=== PATIENT | male | born 1940 | race Caucasian/White ===

== ENCOUNTER 2020-11-04 11:08 | Emergency (ER) | payer MEDICARE, BC, SELFPAY ==
[2020-11-04 11:11] VITALS: BP 150/74; PULSE 63; RESP 18; TEMP 37.3; O2SAT 98; BMI 25.0
--- NOTE | 2020-11-04 11:33 | MRI_ITS ---
STUDY: MRI CERVICAL SPINE WITHOUT CONTRAST REASON FOR EXAM: Male, 80 years old. Right hand function loss, pain in the right arm, hand swelling TECHNIQUE: Standardized fat and water weighted pulse sequences were obtained in the sagittal and axial planes. COMPARISON: None FINDINGS: Craniocervical junction and cervical spine are intact and aligned with normal marrow and paraspinal soft tissues. C2-C3 has uncinate and facet hypertrophy. Canal and foramina are patent. C3-C4 has uncinate and facet hypertrophy and broad disc and osteophyte asymmetrically worse on the right. There is mild canal stenosis without cord compression. There is moderate right foraminal stenosis and mild left. C4-C5 has uncinate and facet hypertrophy and right asymmetrically worse broad disc and plate osteophytes. There is minor right-sided cord compression and mild right foraminal stenosis. There is mild to moderate left foraminal stenosis. C5-C6 has uncinate and facet hypertrophy and broad disc and plate osteophytes. There is mild canal stenosis with minor cord compression. There is mild bilateral foraminal stenosis. C6-7 has uncinate and facet hypertrophy asymmetrically worse on the left. Canal is patent. There is moderate left foraminal stenosis with patent). C7-T1 has uncinate and facet hypertrophy and disc and osteophyte. Canal and foramina are patent. T1-T2 has patent canal and foramina. Spinal cord is normal in size and signal with minor flattening at the compressing levels. MRI/Spine Cervical (Routine) IMPRESSION: 1. Multilevel mild spondylotic cord compression. 2. Scattered multilevel bilateral mild/moderate foraminal stenoses. Electronically Signed: Jamin Dunn MD at 14:55 EDT Tel , Service support ,
--- NOTE | 2020-11-04 11:39 | EX.ED.UPPERE ---
HPI History of Present Illness Chief Complaint: Upper Extremity Injury Informant: patient Narrative Narrative: Patient is a 80-year-old male who presents to the emergency department for pain going down the right arm as well as difficulty moving his hand. His initial symptoms started this past Thursday. Has been progressively getting worse. He has not been using his hand due to the pain and lack of strength. He is never had this issue before. Denies any injury. He did have some neck pain prior to this starting but this has since resolved. He denies any fevers or chills. Patient does have a spine and pain management doctor for low back pain. He has gotten injections in the low back previously. He has never had issues with his upper extremities. He denies any headache or vision change. No issues with word finding. No chest pain or shortness of breath. No heart palpitations. PFSH PFSH Medical History Alcohol abuse Cancer COPD (chronic obstructive pulmonary disease) Hypertension Smoker Allergy/AdvReac Type Severity Reaction Status Date / Time Sulfa (Sulfonamide Allergy Swelling Verified 11/04/20 11:10 Antibiotics) Surgical History (Updated 11/04/20 @ 11:59 by Josephine Farmer) History of cholecystectomy Social History Smoking Status: Current every day smoker tobacco type: cigarettes ROS ROS ED Constitutional Constitutional ED: Denies chills or fever(s) Eyes Eyes: Denies change in vision ENT ENT ED: Denies epistaxis Cardiovascular Cardiovascular: Denies chest pain or palpitations Respiratory/Chest Respiratory/Chest: Denies cough, dyspnea or dyspnea on exertion Gastrointestinal Gastrointestinal: Denies abdominal pain, diarrhea, nausea or vomiting Musculoskeletal Musculoskeletal: Reports back pain and other Details: Right arm and hand pain ; Denies neck pain Integumentary Denies rash Neurologic Neurologic: Denies dizziness, headache(s) or weakness EXAM Physical Exam Const Vital Signs: 11/04/20 11:11 Temperature 99.1 F Temperature Source Temporal Pulse Rate 63 Respiratory Rate 18 Blood Pressure 150/74 H Blood Pressure Mean 99 Pulse Ox 98 Oxygen Delivery Method Room Air Positive well nourished and well developed General Appearance ED: well developed and NAD HEENT Reports normocephalic, head/scalp atraumatic and moist mucous membranes Eyes PERRL and EOMs intact bilaterally Neck no lymphadenopathy and supple General: Negative for tenderness Chest Wall inspection of chest normal Resp normal respiratory effort and clear to auscultation bilaterally Auscultation: Negative for rales, rhonchi or wheezes Cardio regular rate, regular rhythm and no murmurs GI normal to inspection, nondistended, normoactive bowel sounds and non-tender Back/Spine no CVA tenderness Back/Spine Narrative: No pain to palpation of midline spine. No step-off sign. Extremity Extremity Narrative: Right hand does have edema present. 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 He has decreased sensation throughout all fingers. 2+ radial pulse. Brisk capillary refill. Neuro oriented x3 Neuro Narrative: No clonus of lower extremities. Negative Babinski sign. Sensorium / Orientation: alert Psych mental status grossly normal Skin no rashes or lesions noted MDM MDM MDM Narrative Medical decision making narrative: Patient presents to the ED for right hand swelling, pain and decreased use due to muscle strength loss. On arrival to the ED vital signs within normal limits. He is in no acute distress. The right hand does have dependent edema. 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 This did start with pain. A low concern for stroke causing the symptoms. Will obtain MRI of the cervical spine given concern for significant stenosis causing this acute loss of function. MRIs was obtained which showed mild cord compression of the cervical spine at multiple levels. There is also spinal stenosis. I did attempt to contact his spine surgeon in [facility] but never received a call back. I did speak with Dr. Loomis and he recommended placing the patient on the Medrol Dosepak. He does not feel that this is an acute surgical spinal emergency. He is given [place] prior to discharge. He needs to call his surgeon first thing tomorrow morning. Return precautions are reviewed. He understands and is agreeable this plan. I have very low concern for central cause including stroke of his hand weakness and pain. I do not feel that this is a blood clot given the muscle weakness. The patient and patient's son who is at bedside are agreeable with this plan. Discharged home in stable condition. All questions were answered. Discharge Plan Triage Chief Complaint: Upper Extremity Injury ED Provider: Phuc Bradford Dx/Rx/DC Orders Clinical Impression: Cervical spinal cord compression, Weakness of right hand Instructions: ED Neuropathy, Peripheral Referrals: LAXMI AGUILAR [Other] Activity Restrictions/Additional Instructions: Please call your spine surgery first thing in the morning tomorrow for appointment. Disposition Disposition: Home, self care
[2020-11-04 15:04] VITALS: BP 166/64; PULSE 64; RESP 16; O2SAT 97
[2020-11-04] MEDS: MethylPREDNISolone DosePak 4 MG BOX 16 MG PO (16:34)
[2020-11-04] MEDS: HYDROcodone Bitartrate/Apap 5/325 Tablet PO (16:34)
== END 2020-11-04 17:07 | disposition home or self-care (01) ==
PROVIDERS: Emergency Provider Emergency Medicine
DX: G95.20 Unspecified cord compression (principal); R53.1 Weakness; J44.9 Chronic obstructive pulmonary disease, unspecified; I10 Essential (primary) hypertension; F17.210 Nicotine dependence, cigarettes, uncomplicated
CPT/HCPCS: 72141; 99282

== ENCOUNTER → 2022-08-01 | Outpatient (REF) | payer MEDICARE, BC, SELFPAY ==
[2022-08-01 08:34] LABS: AST(SGOT) 33 U/L (15-37); Alanine Aminotransfer ALT/SGPT 31 U/L (16-61); Albumin, Serum 2.5 g/dL (3.2-5.0); Alkaline Phosphatase 275 U/L (45-117); Bilirubin, Direct 2.19 mg/dL (0.00-0.30); Globulin 3.3 g/dL (2.2-4.2); Protein, Total 5.8 g/dL (6.4-8.2)
== END ==
LOC: OLS.WHLTCC 05:00
PROVIDERS: Visit Provider Internal Medicine
DX: C22.1 Intrahepatic bile duct carcinoma (principal); M62.81 Muscle weakness (generalized); R26.2 Difficulty in walking, not elsewhere classified; R27.8 Other lack of coordination; Z48.815 Encounter for surgical aftercare following surgery on the digestive system
CPT/HCPCS: 36415; 80076

== ENCOUNTER 2022-10-03 14:13 | Inpatient (IN) | payer MEDICARE, BC, SELFPAY ==
[2022-10-03 14:15] VITALS: BP 136/80; PULSE 74; RESP 16; TEMP 36.2; O2SAT 97
--- NOTE | 2022-10-03 14:33 | EDS_ITS ---
HPI <MERVAT Mendoza - Last Filed: 10/03/22 15:55> History of Present Illness Chief Complaint: General Illness Narrative Narrative: 82-year-old male with PMH of pancreatic cancer sent in by his oncologist for admission. Patient was diagnosed with pancreatic cancer early in 2022 and had a Whipple procedure in [place]. He started chemotherapy with Dr. Patel about a month ago which is scheduled for every 2 weeks. He tolerated the first round well so they added a third chemotherapy agent with it on October 01 but it caused severe diarrhea and nausea. These are common side effects. He has had outpatient hydration through his port over the last few days with no improvement. He still feels very weak and family has noted he seems confused. He is not taking his medication properly. He is very nauseous but has no vomiting. Denies chest pain or shortness of breath. States he is urinating normally. He is taking Imodium but it does not slow down the diarrhea. He fell last night at his independent living facility?states he was weak when getting off the toilet and fell on his butt and injured his right hip. He was able to stand and ambulate. Denies head injury. PFSH <MERVAT Mendoza - Last Filed: 10/03/22 15:55> PFSH Medical History Alcohol abuse Cancer COPD (chronic obstructive pulmonary disease) Hypertension Pancreatic cancer Smoker Allergy/AdvReac Type Severity Reaction Status Date / Time Sulfa (Sulfonamide Allergy Swelling Verified 10/03/22 14:20 Antibiotics) Surgical History (Updated 11/04/20 @ 11:59 by Josephine Farmer) History of cholecystectomy Social History Smoking Status: Current every day smoker tobacco type: cigarettes ROS <MERVAT Mendoza - Last Filed: 10/03/22 15:55> ROS ED ROS Narrative Constitutional: Negative for fever, chills. CVS: Negative for palpitations, chest pain. Respiratory: Negative for shortness of breath, cough. GI: Positive for nausea and diarrhea. Negative for abdominal pain, vomiting, melena. : Negative for dysuria. Neuro: Negative for headache. EXAM <MERVAT Mendoza Last Filed: 10/03/22 15:55> Physical Exam Narrative Exam Narrative: CONST: Patient sitting in no acute distress. EYES: Normal inspection. ENT: Slightly dry mucous membranes, tongue appears to have a white film consistent with thrush. NECK: Normal inspection. RESP: No respiratory distress, CTAB. CVS: Regular rate and rhythm, no murmur, no gallop. ABD: Soft and nontender, no guarding or rebound, nondistended. SKIN: Color normal, no rash, warm, dry, intact. EXTREMITIES: Normal appearance, no shortening or rotation of lower extremities. No reproducible tenderness of the right hip. No other injuries noted, moving all extremities, 2+ radial and DP pulses NEURO: Oriented x4. PSYCH: Normal affect. Const Vital Signs: 10/03/22 14:15 Temperature 97.2 F L Temperature Source Temporal Pulse Rate 74 Respiratory Rate 16 Blood Pressure 136/80 H Blood Pressure Mean 98 Pulse Ox 97 Oxygen Delivery Method Room Air <Dr. Byron Harrison MD - Last Filed: 10/03/22 14:52> Physical Exam Const Vital Signs: 10/03/22 14:15 Temperature 97.2 F L Temperature Source Temporal Pulse Rate 74 Respiratory Rate 16 Blood Pressure 136/80 H Blood Pressure Mean 98 Pulse Ox 97 Oxygen Delivery Method Room Air MDM <MERVAT Mendoza - Last Filed: 10/03/22 15:55> MDM MDM Narrative Medical decision making narrative: History gathered from: Patient and daughter Patient is having nausea, diarrhea, weakness and confusion since receiving IV chemotherapy for pancreatic cancer about 3 days ago. Had a fall last night at assisted living facility. Here he is awake and alert. He is oriented x4 with no focal neurological deficits but daughter states he has been repeating questions frequently which is atypical. Afebrile with normal vital signs. He does have slightly dry mucous membranes with an otherwise unremarkable exam. Labs show stable anemia at 10.3, mild new leukopenia with WBC count of 2.5, platelets 102. Overall his BMP is unremarkable with no major signs of dehydration or IRASEMA. CT brain and hip and pelvis x-rays are negative. Patient was hydrated with 1 L IV fluids and Zofran byte outpatient hydration over the last 3 days he continues to have diarrhea and be weak and fell last night. I feel he needs admitted to the hospital overnight. Case was discussed with the hospitalist. Differential: Dehydration, acute kidney injury, electrolyte abnormality, infectious process Consults: Case discussed with hospitalist I have personally performed a face to face assessment of the patient and have reviewed the CHRISTOPHER Note. I performed a substantive portion of the visit including all aspects of the following. My rodriguez findings include: History is 82-year-old male history of pancreatic CA on chemotherapy. Has had diarrhea for approximately a week. Has been generally weak at home and actually fell yesterday injuring his right hip. He is able to stand and walk. Denies hitting his head. He is on no blood thinners. Daughter is with him and states that has been more confused recently. He has had no vomiting. No fever. He was sent in by his oncologist who believes he would benefit from admission. Myself and our physician patient services assistant evaluated the patient. Exam is [well-appearing 82-year-old male. Vital signs are stable afebrile. He does not look septic or toxic. H EENT exam atraumatic. Nontender. Mildly dry mucous membranes. Neck nontender no lymphadenopathy. Back nontender. Lungs are clear. Heart regular rhythm. Right-sided med port. Abdomen soft nontender. Moving all 4 extremities. Mild tenderness to the right lateral hip. No shortening or deformity. Normal range of motion. He does have edema in both ankles. That is chronic. Neurologically he is awake and alert. He answers questions follows commands. He moves all 4 extremities. He knows where he is at, month and year. Daughter is present in the room.] Medical Decision Making [82-year-old male pancreatic CA on chemo having diarrhea, confusion and fall. Exam benign mild tenderness to his right hip. Screening labs, CAT scan of his head for the confusion and a right hip x-ray will be obtained. This could be from dehydration even though clinically look does look that dehydrated. Could be an infectious etiology but no obvious source on exam. Could be from a head injury but he has no signs any trauma to his head or tenderness.] Other additions or changes: [None] Lab Data Labs: Laboratory Results - last 24 hr 10/03/22 10/03/22 14:45 14:45 WBC 2.5 L RBC 3.13 L Hgb 10.3 L Hct 29.7 L MCV 94.9 H MCH 32.9 H MCHC 34.7 RDW Std Deviation 44.0 H RDW Coeff of Burak 12.7 Plt Count 102 L MPV 10.3 Immature Gran % (Auto) 2.000 H Neut % (Auto) 49.4 Lymph % (Auto) 20.9 [place] % (Auto) 25.3 H Eos % (Auto) 0.4 Baso % (Auto) 2.0 H Absolute Neuts (auto) 1.2 L Absolute Lymphs (auto) 0.52 L Nucleated RBC % 0 Differential Comment SCANNED Diff Path Review May foll Sodium 135 L Potassium 3.3 L Chloride 105 Carbon Dioxide 20.0 L Anion Gap 10 BUN 20 H Creatinine 1.13 Estim Creat Clear Calc 42.26 Est GFR (MDRD) Af Amer 80 Est GFR (MDRD) Non-Af 66 BUN/Creatinine Ratio 17.7 Glucose 114 H Calcium 8.8 Total Bilirubin 0.60 AST 24 ALT 33 Alkaline Phosphatase 145 H Total Protein 6.8 Albumin 3.1 L Globulin 3.7 Albumin/Globulin Ratio 0.8 L Radiography Diagnostic Testing: Clinical Impression(s) from Imaging Studies Brain CT 10/03/22 14:35 IMPRESSION: Chronic involutional changes of the brain. Electronically Signed: Nick Garcia MD at 15:34 EDT , ED attending interpretation of right hip and pelvis shows no acute fracture or dislocation. <Dr. Byron Harrison MD - Last Filed: 10/03/22 14:52> [facility] MDM Narrative Medical decision making narrative: History gathered from: Patient and daughter Patient is having nausea, diarrhea, weakness and confusion since receiving IV chemotherapy for pancreatic cancer about 3 days ago. Had a fall last night at assisted living facility. Here he is awake and alert. He is oriented x4 with no focal neurological deficits but daughter states he has been repeating questions frequently which is atypical. Afebrile with normal vital signs. He does have slightly dry mucous membranes with an otherwise unremarkable exam. I have personally performed a face to face assessment of the patient and have reviewed the CHRISTOPHER Note. I performed a substantive portion of the visit including all aspects of the following. My rodriguez findings include: History is 82-year-old male history of pancreatic CA on chemotherapy. Has had diarrhea for approximately a week. Has been generally weak at home and actually fell yesterday injuring his right hip. He is able to stand and walk. Denies hitting his head. He is on no blood thinners. Daughter is with him and states that has been more confused recently. He has had no vomiting. No fever. He was sent in by his oncologist who believes he would benefit from admission. Myself and our physician patient services assistant evaluated the patient. Exam is [well-appearing 82-year-old male. Vital signs are stable afebrile. He does not look septic or toxic. H EENT exam atraumatic. Nontender. Mildly dry mucous membranes. Neck nontender no lymphadenopathy. Back nontender. Lungs are clear. Heart regular rhythm. Right-sided med port. Abdomen soft nontender. Moving all 4 extremities. Mild tenderness to the right lateral hip. No shortening or deformity. Normal range of motion. He does have edema in both ankles. That is chronic. Neurologically he is awake and alert. He answers questions follows commands. He moves all 4 extremities. He knows where he is at, month and year. Daughter is present in the room.] Medical Decision Making [82-year-old male pancreatic CA on chemo having diarrhea, confusion and fall. Exam benign mild tenderness to his right hip. Screening labs, CAT scan of his head for the confusion and a right hip x-ray will be obtained. This could be from dehydration even though clinically look does look that dehydrated. Could be an infectious etiology but no obvious source on exam. Could be from a head injury but he has no signs any trauma to his head or tenderness.] Other additions or changes: [None] History & Record Review Discussion w/independent historian: Patient and Family Additional record(s) reviewed:: Prior inpatient record, Prior outpatient record, Prior ED visit and Prior labs Lab Data Attestation: I reviewed the patient's lab results. Labs: Laboratory Results - last 24 hr 10/03/22 10/03/22 14:45 14:45 WBC 2.5 L RBC 3.13 L Hgb 10.3 L Hct 29.7 L MCV 94.9 H MCH 32.9 H MCHC 34.7 RDW Std Deviation 44.0 H RDW Coeff of [place]ak 12.7 Plt Count 102 L MPV 10.3 Immature Gran % (Auto) 2.000 H Neut % (Auto) 49.4 Lymph % (Auto) 20.9 [place] % (Auto) 25.3 H Eos % (Auto) 0.4 Baso % (Auto) 2.0 H Absolute Neuts (auto) 1.2 L Absolute Lymphs (auto) 0.52 L Nucleated RBC % 0 Differential Comment SCANNED Diff Path Review May foll Sodium 135 L Potassium 3.3 L Chloride 105 Carbon Dioxide 20.0 L Anion Gap 10 BUN 20 H Creatinine 1.13 Estim Creat Clear Calc 42.26 Est GFR (MDRD) Af Amer 80 Est GFR (MDRD) Non-Af 66 BUN/Creatinine Ratio 17.7 Glucose 114 H Calcium 8.8 Total Bilirubin 0.60 AST 24 ALT 33 Alkaline Phosphatase 145 H Total Protein 6.8 Albumin 3.1 L Globulin 3.7 Albumin/Globulin Ratio 0.8 L Radiography Diagnostic Testing: Clinical Impression(s) from Imaging Studies Brain CT 10/03/22 14:35 IMPRESSION: Chronic involutional changes of the brain. Electronically Signed: Nick Garcia MD at 15:34 EDT , Discharge Plan Triage Chief Complaint: General Illness ED Midlevel Provider: Suzie Mccain ED Provider: Byron Harrison Dx/Rx/DC Orders Primary Care Provider: Denny Dietrich Referrals: Denny Dietrich MD [Primary Care Provider] -
[2022-10-03 14:34] VITALS: BMI 19.8
--- NOTE | 2022-10-03 14:35 | CT_ITS ---
Confusion. STUDY: CT BRAIN WITHOUT CONTRAST REASON FOR EXAM: Male, 82 years old. Confusion RADIATION DOSAGE (If Supplied By Facility): CTDIvol = ( 44.99 ) mGy, DLP = ( 779.24 ) mGycm TECHNIQUE: Transaxial CT imaging of the brain was performed without administration of intravenous contrast material. Individualized dose optimization techniques were used for this CT. COMPARISON: No relevant priors. FINDINGS: Normal soft tissue structures. Normal calvarium. There is mild cerebral atrophy with widening of the extra-axial spaces and ventricular dilatation. There are areas of decreased attenuation within the white matter tracts of the supratentorial brain, consistent with microvascular disease changes. Normal basal ganglia and thalami. Normal brainstem. There is mild cerebellar atrophy. There is no intracranial hemorrhage. There are no findings of an acute ischemic infarction. Atherosclerotic plaque formation of the cavernous portions of the internal carotid arteries bilaterally. Normal visualized paranasal sinuses. CT/Brain/Head without Contrast IMPRESSION: Chronic involutional changes of the brain. Electronically Signed: Nick Garcia MD at 15:34 EDT ,
[2022-10-03 14:55] LABS: Absolute Lymphocyte Count 0.52 X10^3/uL (0.83-4.51); Absolute Neutrophil Count 1.2 X10^3/uL (2.0-7.7); Basophil# 0.05 X10^3/uL; Eosinophil# 0.01 X10^3/uL; Eosinophils% 0.4 % (0-5); Hematocrit 29.7 % (40-54); Hemoglobin 10.3 g/dL (13.0-16.5); Lymphocyte # 0.52 X10^3/ul (0.83-4.51); Lymphocyte % 20.9 % (19-41); Mean Corp Hgb Conc 34.7 g/dL (32-36); Mean Corpuscular Hgb 32.9 pg (27.0-32.0); Mean Corpuscular Volume 94.9 fL (80-94); Mean Platelet Vol. 10.3 fl (6.2-12.0); Monocyte# 0.63 X10^3/uL; Monocyte% 25.3 % (0-10); NRBC Flagged by Analyzer 0 % (0-5); Neutrophil # 1.23 X10^3/uL (2.7-7.7); Neutrophil % 49.4 % (47-70); POSITIVE DIFFERENTIAL YES; POSITIVE MORPHOLOGY YES; Platelet Count 102 K/mm3 (150-450); RBC Distribution Width CV 12.7 % (11.6-14.6); Red Blood Count 3.13 M/mm3 (4.6-6.2); White Blood Count 2.5 K/mm3 (4.4-11.0)
[2022-10-03 14:56] LABS: Differential Indicated SCAN CRITERIA MET
[2022-10-03] MEDS: Ondansetron 4 MG/2 ML Vial IV (15:01)
[2022-10-03] MEDS: 0.9% Normal Saline 1,000 ML 999 ML IV (15:04)
[2022-10-03 15:11] LABS: ALB/GLOB Ratio 0.8 RATIO (0.9-2.4); AST(SGOT) 24 U/L (15-37); Alanine Aminotransfer ALT/SGPT 33 U/L (16-61); Albumin, Serum 3.1 g/dL (3.2-5.0); Alkaline Phosphatase 145 U/L (45-117); Anion Gap 10 (5-15); BUN 20 mg/dL (7-18); BUN/Creat Ratio 17.7 RATIO (10-20); Calcium,Total 8.8 mg/dL (8.5-10.1); Chloride 105 mmol/L (98-107); Creatinine, Serum 1.13 mg/dL (0.70-1.30); EST Glomerular Filtration Rate 66 mL/min (>60); Est Glom Filt Rate - Afr Amer 80 mL/min (>60); Estimated Creatinine Clearance 42.26 ml/min; Globulin 3.7 g/dL (2.2-4.2); Glucose 114 mg/dL (74-106); Potassium 3.3 mmol/L (3.5-5.1); Protein, Total 6.8 g/dL (6.4-8.2); Sodium Level 135 mmol/L (136-145)
--- NOTE | 2022-10-03 15:20 | RAD_ITS ---
STUDY: X-RAY - PELVIS AND RIGHT HIP REASON FOR EXAM: Male, 82 years old. right hip pain TECHNIQUE: 3 views of the pelvis and hip. COMPARISON: None. FINDINGS: There is a non-specific bowel gas pattern. There are radiotherapy seeds in the prostate. There are atherosclerotic vascular calcifications. Normal bilateral iliac wings, sacroiliac joints and visualized sacrum. Normal bilateral superior and inferior pubic rami. Normal pubic symphysis. Normal bilateral ischial tuberosities. Normal visualized femoral head. Normal acetabulum. Normal hip joint. RAD/HIP, UNI W/ Pelvis 2-3 Views IMPRESSION: No definite acute or significant abnormality seen. Electronically Signed: Ulises Romero MD at 16:47 EDT ,
[2022-10-03 15:34] LABS: Differential Comment SCANNED
--- NOTE | 2022-10-03 16:36 | HP.PCM_ITS ---
HPI - General General Date of Admission: 10/03/22 Date of Service: 10/03/22 Chief Complaint: Protracted diarrhea HPI Narrative MASSIEL CONTRERAS, is a 82 M with a history of cholangiocarcinoma status post Whipple's surgery and who was recently started on chemotherapy. Has received 2 courses. Patient or family unable to provide specific cancer treatment regimen. Patient present to the hospital on account of protracted diarrhea. Has had diarrhea for the last 2 to 3 weeks. States this started after the second course of chemotherapy at which time a third medication was added. Associated with abdominal cramps occasionally. Did not report any fever or chills. Has some nausea and rarely some vomiting. Appetite is poor and oral intake has been markedly diminished as well. Has tried several antidiarrheals without improvements PFSH Medical History Alcohol abuse Cancer COPD (chronic obstructive pulmonary disease) Hypertension Pancreatic cancer Smoker Allergy/AdvReac Type Severity Reaction Status Date / Time Sulfa (Sulfonamide Allergy Swelling Verified 10/03/22 14:20 Antibiotics) Surgical History History of cholecystectomy Social History Smoking Status: Current every day smoker tobacco type: cigarettes ROS ROS Narrative Did not report any chest pain or shortness of breath. Has some lower extremity swelling. All other systems reviewed and essentially negative as above in the body of the history. Vital Signs Vital Signs Vital Signs: 10/03/22 14:15 Temperature 36.2 C L Temperature Source Temporal Pulse Rate 74 Respiratory Rate 16 Blood Pressure 136/80 H Blood Pressure Mean 98 Pulse Ox 97 Oxygen Delivery Method Room Air Weight Weight: 57.3 kg Body Mass Index (BMI) 19.8 Physical Exam Narrative General exam. Elderly man, acutely ill-appearing, chronically ill-appearing, weak appearing, Skin. Skin is dry and scaly HEENT. Oral mucosa is moist some whitish plaques on buccal mucosa on the left. Neck. Neck is supple Heart. First and second heart sounds are both quite distant Lungs. Diminished breath sounds in entry bilaterally with expiratory wheezing. Few transmitted sounds. Abdomen. Protuberant, well-healed laparotomy scar noted. Hyperactive bowel sounds, nontender. No masses organomegaly Extremities. 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 Conscious alert and oriented x3. Cranial nerves II to XII grossly intact. Results Medical Records Data Attestation: I reviewed the patient's medical records Lab / Micro Data Attestation: I reviewed the patient's lab results. Result Diagrams: 10/03/22 14:45 10/03/22 14:45 Labs: Laboratory Results - last 24 hr 10/03/22 14:45: WBC 2.5 L, RBC 3.13 L, Hgb 10.3 L, Hct 29.7 L, MCV 94.9 H, MCH 32.9 H, MCHC 34.7, RDW Std Deviation 44.0 H, RDW Coeff of Burak 12.7, Plt Count 102 L, MPV 10.3, Immature Gran % (Auto) 2.000 H, Neut % (Auto) 49.4, Lymph % (Auto) 20.9, Alfalfa % (Auto) 25.3 H, Eos % (Auto) 0.4, Baso % (Auto) 2.0 H, Absolute Neuts (auto) 1.2 L, Absolute Lymphs (auto) 0.52 L, Nucleated RBC % 0, Differential Comment SCANNED, Diff Path Review September foll 10/03/22 14:45: Sodium 135 L, Potassium 3.3 L, Chloride 105, Carbon Dioxide 20.0 L, Anion Gap 10, BUN 20 H, Creatinine 1.13, Estim Creat Clear Calc 42.26, Est GFR (MDRD) Af Amer 80, Est GFR (MDRD) Non-Af 66, BUN/Creatinine Ratio 17.7, Glucose 114 H, Calcium 8.8, Total Bilirubin 0.60, AST 24, ALT 33, Alkaline Phosphatase 145 H, Total Protein 6.8, Albumin 3.1 L, Globulin 3.7, Albumin/Globulin Ratio 0.8 L Micro: Microbiology 10/03/22 15:07 Nasal Secretion SARS-CoV-2 & FLU Antigen (Rapid) - Final Radiology Impression Brain CT 10/03/22 14:35 IMPRESSION: Chronic involutional changes of the brain. Electronically Signed: Nick Garcia MD at 15:34 EDT , Assessment & Plan Assessment/Plan (1) Intractable diarrhea: PLAN: Plan Assessment and plan 1. Intractable diarrhea. Most likely side effect of recently started chemotherapy. We will schedule on antidiarrheals. Check for continued difficile infection. 2. Dehydration with prerenal azotemia. Secondary to #1 above. Will give IV fluids with D5 normal saline with 20 of potassium. 3. Hypokalemia. Mild. Secondary to #1 above as well as well as diminished intake. We will replete as planned #2 above. 4. Status post Whipple's procedure for cholangiocarcinoma. Charges/Coding Visit Charges Inpatient E&M: 52959 Init Hosp L3
[2022-10-03 16:49] VITALS: BP 151/53; PULSE 66; RESP 18; TEMP 36.2; O2SAT 99
[2022-10-03 17:07] VITALS: BMI 19.3
[2022-10-03] MEDS: Ondansetron 4 MG/2 ML Vial 8 MG IV (17:38)
[2022-10-03] MEDS: NYSTATIN 500,000 UNIT/5 ML UDC 500000 UNIT PO ×2 (17:39→21:52)
[2022-10-03] MEDS: Diphenoxylate/Atrop 1 Tablet 2 TABLET PO ×2 (17:39→22:49)
[2022-10-03 17:54] LABS: Bacteria 0 SEEN /hpf (None Seen); Mucous, Urine 0 SEEN /hpf (<or=2+); Red Blood Cells-Urine 0 SEEN /hpf (0-5); Squamous Epithelial Cells - UA 0 SEEN /hpf (0-5)
[2022-10-03 17:57] LABS: Color, Urine Yellow (Yellow); Glucose, Dipstick Normal (Normal); Ketone-Dipstick 50 mg/dl (Negative); Leukocyte Esterase-Dipstick 25 /ul (Negative); Nitrite-Dipstick Negative (Negative); Occult Blood-Urine 10 /ul (Negative); Protein-Dipstick 100 mg/dl (Negative); Urine Bilirubin Dipstick Negative (Negative); Urine Clarity Clear (Clear); Urine Urobilinogen Normal (Normal)
[2022-10-03] MEDS: Potassium Chloride 40 MEQ in Dextrose 5%/0.9% NaCl 1,000 ML 150 MEQ IV (18:03)
[2022-10-03 18:11] LABS: Hyaline Cast 5-10 SEEN /lpf (0-5); White Blood Cells 0-5 SEEN /hpf (0-5)
[2022-10-03 21:52] VITALS: BP 145/54; PULSE 67; RESP 18; TEMP 36.9; O2SAT 100
[2022-10-03] MEDS: MELATONIN 3 MG TABLET PO (21:52)
[2022-10-03] MEDS: Gabapentin 300 MG Capsule PO (22:49)
[2022-10-04] VITALS (13 sets, daily range): BP systolic 125–170; BP diastolic 54–91; PULSE 61–150; RESP 16–18; TEMP 36.6–37.2; O2SAT 98–100
[2022-10-04] MEDS: Potassium Chloride 40 MEQ in Dextrose 5%/0.9% NaCl 1,000 ML 150 MEQ IV ×3 (00:56→15:58)
[2022-10-04] MEDS: 0.9% Saline Lock 10 ML Syringe IV ×2 (06:15→23:38)
[2022-10-04] MEDS: Ondansetron 4 MG/2 ML Vial 8 MG IV ×3 (06:15→22:23)
[2022-10-04 07:31] LABS: Hemoglobin 9.3 g/dL (13.0-16.5); Mean Corp Hgb Conc 34.4 g/dL (32-36); Mean Corpuscular Hgb 33.1 pg (27.0-32.0); Mean Corpuscular Volume 96.1 fL (80-94); Mean Platelet Vol. 11.2 fl (6.2-12.0); POSITIVE COUNT YES; POSITIVE DIFFERENTIAL YES; POSITIVE MORPHOLOGY YES; Platelet Count 91 K/mm3 (150-450); RBC Distribution Width SD 45.3 fl (35.1-43.9); Red Blood Count 2.81 M/mm3 (4.6-6.2); White Blood Count 3.2 K/mm3 (4.4-11.0)
[2022-10-04 07:32] LABS: Differential Indicated MANUAL DIFF; Lymphocyte 32 % (19-41); Metamyelocyte 4 % (0-1); Monocyte 19 % (0-10); Neutrophil-Band 23 % (0-5); Neutrophil-Segmented 22 % (47-70); Total Cells Counted 100 (MANUAL DIFF)
[2022-10-04 07:33] LABS: Absolute Neutrophil Count 1.4 X10^3/uL (2.0-7.7); Neutrophil # 1.39 X10^3/uL (2.7-7.7); Platelet Estimate SLT DEC (ADEQ); Red Cell Morphology NORM C+C NORMAL (NORM C&C)
[2022-10-04 07:34] LABS: Absolute Lymphocyte Count 0.99 X10^3/uL (0.83-4.51); Lymphocyte # 0.99 X10^3/ul (0.83-4.51)
[2022-10-04 07:38] LABS: ALB/GLOB Ratio 0.8 RATIO (0.9-2.4); AST(SGOT) 14 U/L (15-37); Alanine Aminotransfer ALT/SGPT 24 U/L (16-61); Albumin, Serum 2.6 g/dL (3.2-5.0); Alkaline Phosphatase 118 U/L (45-117); Anion Gap 5 (5-15); BUN 14 mg/dL (7-18); BUN/Creat Ratio 14.2 RATIO (10-20); Calcium,Total 8.4 mg/dL (8.5-10.1); Chloride 115 mmol/L (98-107); Creatinine, Serum 0.99 mg/dL (0.70-1.30); EST Glomerular Filtration Rate 78 mL/min (>60); Est Glom Filt Rate - Afr Amer 94 mL/min (>60); Estimated Creatinine Clearance 47.18 ml/min; Globulin 3.1 g/dL (2.2-4.2); Glucose 172 mg/dL (74-106); Magnesium 2.1 mg/dL (1.6-2.6); Phosphorus 1.3 mg/dL (2.5-4.9); Potassium 3.4 mmol/L (3.5-5.1); Protein, Total 5.7 g/dL (6.4-8.2); Sodium Level 139 mmol/L (136-145)
[2022-10-04] MEDS: Creon 24,000 unit DR Capsule 3 CAP PO ×3 (08:23→16:09)
[2022-10-04] MEDS: amLODIPine 10 MG Tablet PO (10:30)
[2022-10-04] MEDS: Ascorbic Acid 500 MG Tablet 250 MG PO (10:30)
[2022-10-04] MEDS: Diphenoxylate/Atrop 1 Tablet 2 TABLET PO ×4 (10:30→22:23)
[2022-10-04] MEDS: Cholecalciferol (VIT D3) 25 MCG TABLET (1,000 UNITS) 50 MCG PO (10:30)
--- NOTE | 2022-10-04 10:30 | CASEMGMT ---
RN CM Face to Face with patient for initial transition planning/care coordination assessment. RN CM introduced self and role at [facility]. Patient lying in bed, alert and oriented. Patient willing to participate in assessment and is able to answer all questions appropriately. Care providers, pharmacy, and demographics verified. Patient wishes to discharge home if he is able to ambulate, will monitor progress with therapy. Patient states he has no further needs or concerns at this time. CM to follow for discharge planning needs that may arise. PCP: Denny Dietrich Specialists: Jorge oncologist Preferred Pharmacy: [facility] Insurance: Tejal BECKER Prescription Benefit: yes Living Will/HPOA: yes, Phuong Rising daughter LNOK: daughter, son Living Arrangements: Patient lives alone in [facility] in independent living apartment on 2nd floor, elevator to apartment. Patient is independent at home. Transportation: self, daughter DME/HHC: Patient has shower chair, grab bars, walker, and medical alert. No previous HHC or SNF. Will monitor progress with therapy Disposition Plan: TBD, HHC vs SNF pending progress with therapy. Emilia ESPINOZAN, RN, CM
[2022-10-04] MEDS: NYSTATIN 500,000 UNIT/5 ML UDC 500000 UNIT PO ×3 (10:31→18:14)
[2022-10-04] MEDS: Loperamide 2 MG Capsule PO (10:31)
[2022-10-04] MEDS: Enoxaparin 40 MG/0.4 ML Syringe SC (10:31)
[2022-10-04] MEDS: Metoprolol(XL)Succ 100 MG Tablet PO (10:31)
[2022-10-04] MEDS: Pravastatin 40 MG Tablet PO (10:32)
[2022-10-04] MEDS: Pantoprazole Sodium 40 MG Tablet PO (10:33)
--- NOTE | 2022-10-04 13:26 | PN.HOSP_ITS ---
Reason for Visit Reason for Visit: Diagnoses Diarrhea, unspecified (10/03/22) Subjective Subjective Patient was seen and examined today, he states he feels weak and he may not be able to go home. Patient's potassium was slightly low this morning. Is getting IV potassium infused until this afternoon. Patient stated he had an episode of diarrhea this morning. Objective Data Objective Data Vital Signs: Vital Signs Temp Pulse Resp BP Pulse Ox O2 Del Method 98.3 F 69 18 149/67 H 98 Room Air 10/04/22 08:28 10/04/22 10:31 10/04/22 08:28 10/04/22 08:28 10/04/22 08:28 10/04/22 08:28 Oxygen Delivery Method Room Air Weight: 56.047 kg Body Mass Index (BMI) 19.3 Intake & Output: Intake and Output for Last 24 Hours 10/02/22 10/03/22 10/04/22 23:59 23:59 23:59 Intake Total 1000 / 1000 2039 Output Total 150 / 150 Balance 850 / 850 2039 Lab / Micro Data Result Diagrams: 10/04/22 06:15 10/04/22 06:15 Labs: Laboratory Results - last 24 hr 10/03/22 14:45: WBC 2.5 L, RBC 3.13 L, Hgb 10.3 L, Hct 29.7 L, MCV 94.9 H, MCH 32.9 H, MCHC 34.7, RDW Std Deviation 44.0 H, RDW Coeff of Burak 12.7, Plt Count 102 L, MPV 10.3, Immature Gran % (Auto) 2.000 H, Neut % (Auto) 49.4, Lymph % (Auto) 20.9, Levy % (Auto) 25.3 H, Eos % (Auto) 0.4, Baso % (Auto) 2.0 H, Absolute Neuts (auto) 1.2 L, Absolute Lymphs (auto) 0.52 L, Nucleated RBC % 0, Differential Comment SCANNED, Diff Path Review September10/03/22 14:45: Sodium 135 L, Potassium 3.3 L, Chloride 105, Carbon Dioxide 20.0 L, Anion Gap 10, BUN 20 H, Creatinine 1.13, Estim Creat Clear Calc 42.26, Est GFR (MDRD) Af Amer 80, Est GFR (MDRD) Non-Af 66, BUN/Creatinine Ratio 17.7, Glucose 114 H, Calcium 8.8, Total Bilirubin 0.60, AST 24, ALT 33, Alkaline Phosphatase 145 H, Total Protein 6.8, Albumin 3.1 L, Globulin 3.7, Albumin/Globulin Ratio 0.8 L 10/03/22 17:45: Urine Color Yellow, Urine Clarity Clear, Urine pH 5.0, Ur Specific [place] 1.020, Urine Protein 100 H, Urine Glucose (UA) Normal, Urine Ketones 50 H, Urine Occult Blood 10 H, Urine Nitrite Negative, Urine Bilirubin Negative, Urine Urobilinogen Normal, Ur Leukocyte Esterase 25 H, Urine RBC 0 SEEN, Urine WBC 0-5 SEEN, Ur Squamous Epith Cells 0 SEEN, Urine Bacteria 0 SEEN, Hyaline Casts 5-10 SEEN, Urine Mucus 0 SEEN 10/04/22 06:15: WBC Cancelled, Corrected WBC Cancelled, RBC Cancelled, Hgb Cancelled, Hct Cancelled, MCV Cancelled, MCH Cancelled, MCHC Cancelled, RDW Std Deviation Cancelled, RDW Coeff of Burak Cancelled, Plt Count Cancelled, MPV Cancelled, Immature Gran % (Auto) Cancelled, Neut % (Auto) Cancelled, Lymph % (Auto) Cancelled, Levy % (Auto) Cancelled, Eos % (Auto) Cancelled, Baso % (Auto) Cancelled, Absolute Neuts (auto) Cancelled, Absolute Lymphs (auto) Cancelled, Total Counted Cancelled, Neutrophils % (Manual) Cancelled, Band Neutrophils % Cancelled, Lymphocytes % (Manual) Cancelled, Monocytes % (Manual) Cancelled, Eosinophils % (Manual) Cancelled, Basophils % (Manual) Cancelled, Metamyelocytes % Cancelled, Myelocytes % Cancelled, Promyelocytes % Cancelled, Blast Cells % Cancelled, Plasma Cell % (Manual) Cancelled, Other Cells % Cancelled, Nucleated RBC % Cancelled, Nucleated RBCs/100 WBC Cancelled, Differential Comment Cancelled, Diff Path Review Cancelled, Hypersegmented Neuts Cancelled, Atypical Lymphocytes Cancelled, Reactive Lymphocytes Cancelled, Smudge Cells Cancelled, Toxic Granulation Cancelled, Toxic Vacuolation Cancelled, Dohle Bodies C ancelled, Inderjit Rods Cancelled, Platelet Estimate Cancelled, Plt Morphology Comment Cancelled, RBC Morphology Cancelled, Polychromasia Cancelled, Hypochromasia Cancelled, Poikilocytosis Cancelled, Basophilic Stippling Cancelled, Anisocytosis Cancelled, Microcytosis Cancelled, Macrocytosis Cancelled, Spherocytes Cancelled, Sickle Cells Cancelled, Target Cells Cancelled, Tear Drop Cells Cancelled, Ovalocytes Cancelled, Stomatocytes Cancelled, [place] Bodies Cancelled, Feliberto Cells Cancelled, Bite Cells Cancelled, Crenated Cell Cancelled, Acanthocytes (Spur) Cancelled, Rouleaux Cancelled, Schistocytes Cancelled 10/04/22 06:15: Sodium 139, Potassium 3.4 L, Chloride 115 H, Carbon Dioxide 19.0 L, Anion Gap 5, BUN 14, Creatinine 0.99, Estim Creat Clear Calc 47.18, Est GFR (MDRD) Af Amer 94, Est GFR (MDRD) Non-Af 78, BUN/Creatinine Ratio 14.2, Glucose 172 H, Calcium 8.4 L, Phosphorus 1.3 L, Magnesium 2.1, Total Bilirubin 0.40, AST 14 L, ALT 24, Alkaline Phosphatase 118 H, Total Protein 5.7 L, Albumin 2.6 L, Globulin 3.1, Albumin/Globulin Ratio 0.8 L 10/04/22 06:15: WBC 3.2 L, RBC 2.81 L, Hgb 9.3 L, Hct 27.0 L, MCV 96.1 H, MCH 33.1 H, MCHC 34.4, RDW Std Deviation 45.3 H, RDW Coeff of Burak 13.0, Plt Count 91 L, MPV 11.2, Neut % (Auto) Not Reportable, Absolute Neuts (auto) 1.4 L, Absolute Lymphs (auto) 0.99, Total Counted 100, Neutrophils % (Manual) 22 L, Band Neutrophils % 23 H, Lymphocytes % (Manual) 32, Monocytes % (Manual) 19 H, Metamyelocytes % 4 H, Diff Path Review September foll, Platelet Estimate SLT DEC, RBC Morphology NORM C+C Micro: Microbiology 10/03/22 20:43 Stool C. difficile DNA Amplification - Final 10/03/22 15:07 Nasal Secretion SARS-CoV-2 & FLU Antigen (Rapid) - Final Radiography Diagnostic Testing: Radiology Impression Brain CT 10/03/22 14:35 IMPRESSION: Chronic involutional changes of the brain. Electronically Signed: Nick Garcia MD at 15:34 EDT , Hip/Pelvis X-Ray 10/03/22 15:20 IMPRESSION: No definite acute or significant abnormality seen. Electronically Signed: Ulises Romero MD at 16:47 EDT , Physical Exam Const alert, oriented x3 and no apparent distress Constitutional Narrative: Patient appears older than stated age, he appears frail and weak General Appearance: cooperative, well kempt and well developed Orientation / Consciousness: awake, oriented to person, oriented to place and oriented to time HEENT normocephalic, head/scalp atraumatic and moist oral mucous membranes Eyes PERRL, EOMs intact bilaterally and conjunctivae normal Neck supple, no JVD, thyroid normal and no carotid bruits General: trachea midline Resp normal respiratory effort, no retractions, no use of accessory muscles and clear to auscultation bilaterally Auscultation: Negative for rales, rhonchi or wheezes Cardio regular rate, regular rhythm, S1 normal heart sound, S2 normal heart sound, no murmurs, no rub and no gallops GI normal to inspection, nondistended, normoactive bowel sounds, soft to palpation, non-tender and non-distended Extremity no clubbing, cyanosis or edema Skin no rashes or lesions noted General Skin Exam: no breakdown Neuro oriented x3, CN's II-XII intact bilaterally, no focal motor deficits and no sensory deficits noted Sensorium / Orientation: awake and alert Speech: speech normal Psych affect normal Assessment & Plan Assessment/Plan (1) Intractable diarrhea: PLAN: Plan 1. Generalized debility secondary to chronic diarrhea-patient will continue to receive IV fluid for now, PT and OT will work with the patient #2 chronic diarrhea-suspected to be secondary to chemotherapy-patient's C. difficile toxin was negative, continue IV fluids for now, encourage oral intake of fluids #3 pancreatic cancer-complicates care, medical course, recovery, and prognosis #4 hypokalemia-BMP will be checked tomorrow, patient's patient's IV fluids with potassium will be discontinued around 5:00 p.m. today #5 past history of prostate cancer-complicates care, medical course, recovery, and prognosis #6 mild dehydration-again patient's IV fluids will be administered until around 5:00 today, he will be encouraged to intake oral fluids after that Total clinical time spent by myself addressing patient's medical issues, reviewing all of his data, and collaborating with patient's care team: 35 minutes Charges/Coding Visit Charges Inpatient E&M: 71125 Subs Hosp L2
--- NOTE | 2022-10-04 15:22 | CASEMGMT ---
Social Work Pt is here from [facility]. As per therapy, pt may benefit from going somewhere for rehab at discharge. SW met w/pt, spoke w/him about discharge plan. Pt states, I definitely need some help. SW provided to pt a list of custodial facilities, in network w/pt's insurance, in pt's preferred geographic area, complete with quality and resource use data. Pt states he has been to [facility] before for rehab. Pt inquired about TCU. SW explained that there may not be any bed availability, SW will call and leave the referral. SW asked pt to review the list with family(he confirmed his children assist w/decisions), and SW will follow up Thursday w/pt on choices. Pt states understanding. SW did call TCU and left a message w/referral. Plan: SNF likely, facility TBD MIS[facility]
[2022-10-04] MEDS: Dicyclomine 10 MG Capsule 20 MG PO (16:09)
[2022-10-04] MEDS: Psyllium 1 PACKET PO (16:10)
[2022-10-04] MEDS: Loperamide 2 MG Capsule 4 MG PO (20:04)
[2022-10-04] MEDS: MELATONIN 10 MG TABLET 5 MG PO (22:11)
[2022-10-04] MEDS: Menthol/Lanolin/Calamine/Znox 113 GM Tube 1 APPLIC TOPICAL (22:17)
[2022-10-04] MEDS: Gabapentin 300 MG Capsule PO (22:23)
--- NOTE | 2022-10-04 22:53 | EKG12_ITS ---
Test Reason : TACHYCARDIA Blood Pressure : / mmHG Vent. Rate : 145 BPM Atrial Rate : 147 BPM P-R Int : 000 ms QRS Dur : 094 ms QT Int : 306 ms P-R-T Axes : 000 015 076 degrees QTc Int : 475 ms Atrial fibrillation Abnormal ECG No previous ECGs available Confirmed by HARRIS ASHFORD, STEWART ([id number]), supervising film or videotape editor JOHNNY COVARRUBIAS ([id number]) on 10/07/2022 10:02:39 AM Referred By: RADHA Confirmed By:STEWART IGLESIAS MD
[2022-10-04] MEDS: Enoxaparin 60 MG/0.6 ML Syringe SC (23:15)
[2022-10-04] MEDS: Metoprolol Tartrate 5 MG/5 ML Vial IV ×2 (23:16→23:36)
[2022-10-04 23:50] LABS: Magnesium 1.8 mg/dL (1.6-2.6)
[2022-10-05] VITALS (17 sets, daily range): BP systolic 124–183; BP diastolic 54–96; PULSE 69–148; RESP 17–21; TEMP 36–36.6; O2SAT 97–100
[2022-10-05] MEDS: Metoprolol Tartrate 5 MG/5 ML Vial IV
[2022-10-05] MEDS: proCHLORPERazine 10 MG/2 ML Vial 5 MG IV (00:18)
[2022-10-05] MEDS: 0.9% Saline Lock 10 ML Syringe IV ×6 (00:19→22:59)
--- NOTE | 2022-10-05 00:35 | PCM.PN.BLA ---
Progress Note Patient with A-fib with RVR. Received metoprolol IV push x3 with heart rate still above 120. Patient is on metoprolol associated 100 mg daily. Will give additional dose of metoprolol 50 mg/h. Started on therapeutic dose of Lovenox. Check a TSH and magnesium. Replace potassium. Transfer to PCU.
--- NOTE | 2022-10-05 01:02 | NURSING ---
Report given to PAWAN Martínez RN
--- NOTE | 2022-10-05 01:15 | NURSING ---
Pt transferred by a bed to [facility].
--- NOTE | 2022-10-05 01:27 | NURSING ---
Message left for shanel Swanson for update regarding transfer per patient request.
[2022-10-05] MEDS: dilTIAZem 25 MG/5 ML Vial 10 MG IV BOLUS (01:42)
--- NOTE | 2022-10-05 02:03 | NURSING ---
Contacted Rachell, daughter and updated her on condition of Patient and that he transferred to PCU. Directed her to call PCU for updates.
[2022-10-05 06:31] LABS: Anion Gap 10 (5-15); BUN 8 mg/dL (7-18); BUN/Creat Ratio 9.2 RATIO (10-20); Calcium,Total 8.5 mg/dL (8.5-10.1); Chloride 119 mmol/L (98-107); Creatinine, Serum 0.87 mg/dL (0.70-1.30); EST Glomerular Filtration Rate 89 mL/min (>60); Est Glom Filt Rate - Afr Amer 108 mL/min (>60); Estimated Creatinine Clearance 53.69 ml/min; Glucose 121 mg/dL (74-106); Sodium Level 144 mmol/L (136-145); Thyroid Stim Hormone (TSH) 5.03 uIU/mL (0.358-3.74)
[2022-10-05] MEDS: Ondansetron 4 MG/2 ML Vial 8 MG IV ×3 (06:39→22:08)
--- NOTE | 2022-10-05 09:25 | ECHOCS_ITS ---
Reason For Study: Afib, Aflutter Procedure This was a 2D Doppler, Color Flow transthoracic echocardiogram. Contrast injection was performed. Exam performed portable in patient room. Left Ventricle Normal LV size. Left ventricular systolic function is hyperdynamic. No regional wall motion abnormalities noted. Right Ventricle Normal RV size. Normal systolic function. Atria Normal left atrium. Normal right atrium. Lipomatous hypertrophy of the atrial septum. Mitral Valve Normal mitral valve. Tricuspid Valve Normal tricuspid valve. Mild tricuspid valve insufficiency. Pulmonary artery systolic pressure is 30 mmHg. Aortic Valve The aortic valve is not well visualized. Pulmonic Valve The pulmonic valve is not well visualized. Great Vessels Normal aortic root. The pulmonary artery is normal size. Normal inferior vena cava. Pericardium/Pleural No pericardial effusion. Medication Diluted definity 2ml given slow IV push to enhance endocardial definition. MMode/2D Measurements & Calculations LVIDd: 3.1 cm IVSd: 1.6 cm Ao root diam: 2.4 cm LVIDs: 1.7 cm LVPWd: 0.88 cm RVDd: 1.6 cm FS: 45.8 % LAV(MOD-bp): 27.8 ml LVAd ap4: 15.7 cm2 SV(MOD-sp4): 23.2 ml LAV(MOD-bp) Indexed: 16.9 ml/m2 LVLd ap4: 6.5 cm LAV(MOD-sp2): 27.9 ml EDV(MOD-sp4): 30.9 ml LAV(MOD-sp4): 24.2 ml EDV(sp4-el): 32.4 ml LVAs ap4: 6.7 cm2 LVLs ap4: 5.0 cm ESV(MOD-sp4): 7.7 ml ESV(sp4-el): 7.7 ml EF(MOD-sp4): 75.0 % EF(sp4-el): 76.2 % SV(sp4-el): 24.7 ml LA A4 area: 11.2 cm2 LA dimension(2D): 3.3 cm RA A4 area: 6.3 cm2 Doppler Measurements & Calculations MV E max john: 81.6 cm/sec Ao V2 max: 101.5 cm/sec LV V1 max: 133.9 cm/sec Ao max P.1 mmHg LV V1 max P.2 mmHg Ao V2 mean: 82.3 cm/sec Ao mean P.9 mmHg Ao V2 VTI: 14.8 cm PA V2 max: 100.6 cm/sec TR max john: 251.8 cm/sec TR max P.4 mmHg ECHO/Echo Complete W/ Contrast Interpretation Summary Normal LV size. Left ventricular systolic function is hyperdynamic. Lipomatous hypertrophy of the atrial septum. Pulmonary artery systolic pressure is 30 mmHg. Contrast injection was performed. Ordering Physician: Moises Moore Referring Physician: Denny Dietrich Performed By: Amelia Deal, VINICIO, RVT
[2022-10-05] MEDS: Digoxin 250 MCG/ML Ampul 500 MCG IV (10:16)
[2022-10-05] MEDS: NYSTATIN 500,000 UNIT/5 ML UDC 500000 UNIT PO ×4 (10:17→22:08)
[2022-10-05] MEDS: Octreotide 0.1 MG/ML ML SC (10:17)
[2022-10-05] MEDS: Enoxaparin 60 MG/0.6 ML Syringe SC (10:18)
[2022-10-05] MEDS: Pravastatin 40 MG Tablet PO (10:19)
[2022-10-05] MEDS: Pantoprazole Sodium 40 MG Tablet PO (10:20)
[2022-10-05] MEDS: Menthol/Lanolin/Calamine/Znox 113 GM Tube 1 APPLIC TOPICAL ×2 (10:22→22:12)
[2022-10-05] MEDS: Diphenoxylate/Atrop 1 Tablet 2 TABLET PO ×3 (10:39→18:00)
[2022-10-05] MEDS: dilTIAZem 30 MG Tablet PO (10:39)
[2022-10-05] MEDS: Metoprolol(XL)Succ 100 MG Tablet 150 MG PO (10:40)
--- NOTE | 2022-10-05 11:11 | NURSING ---
XL amount of incontinent stool, bath given, FMS repositioned and checked balloon, new linens, repositioned patient, tolerated well. Will cont to monitor FMS.
--- NOTE | 2022-10-05 12:06 | EKG12_ITS ---
Test Reason : RHYTHM CHANGE Blood Pressure : / mmHG Vent. Rate : 071 BPM Atrial Rate : 071 BPM P-R Int : 180 ms QRS Dur : 086 ms QT Int : 380 ms P-R-T Axes : 063 016 046 degrees QTc Int : 412 ms Normal sinus rhythm Normal ECG When compared with ECG of 04-OCT-2022 22:33, MANUAL COMPARISON REQUIRED, DATA IS UNCONFIRMED Confirmed by HARRIS ASHFORD, STEWART ([id number]), food expeditor JOHNNY COVARRUBIAS ([id number]) on 10/07/2022 10:00:40 AM Referred By: FRANCY Confirmed By:STEWART IGLESIAS MD
[2022-10-05] MEDS: Dicyclomine 10 MG Capsule 20 MG PO ×2 (12:24→16:01)
[2022-10-05] MEDS: Loperamide 2 MG Capsule 4 MG PO ×2 (12:25→18:03)
[2022-10-05] MEDS: Ensure Clear 120 ML Liquid PO ×2 (12:29→16:02)
--- NOTE | 2022-10-05 13:06 | PN.HOSP_ITS ---
Reason for Visit Reason for Visit: Diagnoses Diarrhea, unspecified (10/03/22) Subjective Subjective Seen and examined today, he was moved to PCU due to new onset A-fib, the time of my examination today, patient's pulse rate was approximately 120 and a regular. Patient was asymptomatic, I talked with multiple family members who were in the room at the time my examination. I also discussed his care with cardiology and his oncologist Dr. Patel. Patient is still having diarrhea and a rectal tube was inserted last night. Objective Data Objective Data Vital Signs: Vital Signs Temp Pulse Resp BP Pulse Ox O2 Del Method 96.8 F L 74 20 H 164/96 H 99 Room Air 10/05/22 10:00 10/05/22 11:00 10/05/22 10:00 10/05/22 11:00 10/05/22 10:00 10/05/22 10:00 Oxygen Delivery Method Room Air Weight: 56.05 kg Body Mass Index (BMI) 19.3 Intake & Output: Intake and Output for Last 24 Hours 10/03/22 10/04/22 10/05/22 23:59 23:59 23:59 Intake Total 1000 / 1000 4880 / 4880 633.3333 / 633.3333 Output Total 150 / 150 380 / 380 1200 / 1200 Balance 850 / 850 4500 / 4500 -566.6667 / -566.6667 Medical Nutrition Assessment Dietitian: Malnutrition Criteria Met Start: 10/04/22 10:51 Freq: Status: Active Protocol: Document 10/04/22 16:06 RMA (Rec: 10/04/22 16:06 RMA [id number]) Nutrition Malnutrition Evidence of Malnutrition Exists Yes Malnutrition (severe): Acute Illness/Injury Evidenced By Suboptimal Energy Intake ( Severe),Weight Loss (Severe) Clinical Problem Acute Disease or Injury Related Malnutrition Etiology Severe protein-calorie malnutrition in the context of acute illness related to painful swallow, altered GI function and inadequate oral intake Signs/Symptoms as evidenced by BMI 19.4, weight loss~5% in less than 1 month and oral intake meeting less then 50% estimated nutrition needs x past 1 week Status Active Problem Recommendation Dietitian Recommendations/Changes Recommend advance diet as tolerated to regular; consider STEEL RU[employer]ER swallow eval if painful swallow continues. Will add 120 ml ensure clear 4 times per day w/ medpass. Will add ensure compact TID w/ meals for tolerance. Lab / Micro Data Result Diagrams: 10/04/22 06:15 10/05/22 05:35 Labs: Laboratory Results - last 24 hr 10/04/22 23:10: Magnesium 1.8 10/05/22 05:35: Sodium 144, Potassium 3.0 L, Chloride 119 H, Carbon Dioxide 15.0 L, Anion Gap 10, BUN 8, Creatinine 0.87, Estim Creat Clear Calc 53.69, Est GFR (MDRD) Af Amer 108, Est GFR (MDRD) Non-Af 89, BUN/Creatinine Ratio 9.2 L, Glucose 121 H, Calcium 8.5, TSH 5.03 H Micro: Microbiology 10/03/22 20:43 Stool C. difficile DNA Amplification - Final 10/03/22 15:07 Nasal Secretion SARS-CoV-2 & FLU Antigen (Rapid) - Final Physical Exam Narrative alert, oriented x3 and no apparent distress Constitutional Narrative: Patient appears older than stated age, he appears frail and weak General Appearance: cooperative, well kempt and well developed Orientation / Consciousness: awake, oriented to person, oriented to place and oriented to time HEENT normocephalic, head/scalp atraumatic and moist oral mucous membranes Eyes PERRL, EOMs intact bilaterally and conjunctivae normal Neck supple, no JVD, thyroid normal and no carotid bruits General: trachea midline Resp normal respiratory effort, no retractions, no use of accessory muscles and clear to auscultation bilaterally Auscultation: Negative for rales, rhonchi or wheezes Cardio regular rate, irregular rhythm, S1 normal heart sound, S2 normal heart sound, no murmurs, no rub and no gallops GI normal to inspection, nondistended, normoactive bowel sounds, soft to palpation, non-tender and non-distended Extremity no clubbing, cyanosis or edema Skin no rashes or lesions noted General Skin Exam: no breakdown Neuro oriented x3, CN's II-XII intact bilaterally, no focal motor deficits and no sensory deficits noted Sensorium / Orientation: awake and alert Speech: speech normal Psych affect normal Assessment & Plan Assessment/Plan (1) Intractable diarrhea: PLAN: Plan 1. Generalized debility secondary to chronic diarrhea-patient will continue to receive IV fluid for now, PT and OT will work with the patient #2 chronic diarrhea- secondary to chemotherapy-patient's C. difficile toxin was negative, I have ordered an enteric panel on his stool, I have also placed him on octreotide subcu per direction of oncology, patient will remain on Bentyl and Imodium. #3 pancreatic cancer-complicates care, medical course, recovery, and prognosis #4 hypokalemia-BMP will be checked tomorrow, patient's patient's IV fluids with potassium will be discontinued around 5:00 p.m. today #5 past history of prostate cancer-complicates care, medical course, recovery, a nd prognosis #6 mild dehydration-again patient's IV fluids will be administered until around 5:00 today, he will be encouraged to intake oral fluids after that #7 new onset atrial fib with rapid ventricular response-I have administered IV dig today 500 mcg and increased the patient's metoprolol, cardiology advised adding Cardizem 30 mg 3 times daily, at the time of this dictation, patient converted to normal sinus rhythm and I have changed the Cardizem to Cardizem CD 120 daily. Cardiology also recommended patient be placed on Eliquis 2.5 mg twice daily and Lovenox be discontinued. Echocardiogram was ordered for tomorrow. Total clinical time spent by myself addressing patient's medical issues, reviewing all of his data, and collaborating with patient's care team: 37 minutes
--- NOTE | 2022-10-05 13:13 | CON.PCM.CA_ITS ---
Assessment & Plan Assessment/Plan (1) Atrial fibrillation: PLAN: Agree with increasing the beta-rafael. Reasonable to keep the patient on Cardizem 120 mg p.o. daily. Reasonable to check a 2D echo. Discussed Eliquis with the patient. Patient and family are willing to try. Patient can be started on Eliquis 2.5 mg p.o. twice daily. We will sign off at this time. If we can be of any further assistance please let us know. HPI Consult Data Date of Consult: 10/05/22 HPI Narrative Reason for Consultation: Atrial fibrillation HPI Narrative: MASSIEL CONTRERAS, is a 82 M who presents with diarrhea. Patient has history of pancreatic cancer status post Whipple's procedure earlier this year. He went into A-fib with RVR this morning. His metoprolol was increased and he was given a dose of Cardizem and digoxin. He has since converted to sinus rhythm. He den ies any cardiac complaints. PFSH Medical History Alcohol abuse Cancer COPD (chronic obstructive pulmonary disease) Hypertension Pancreatic cancer Smoker Home Medications amlodipine 10 mg tablet 10 mg PO DAILY 10/03/22 [History Last Taken Unknown] ascorbic acid (vitamin C) 250 mg tablet (Vitamin C) 250 mg PO DAILY 10/03/22 [History Last Taken Unknown] bicalutamide 50 mg tablet 50 mg PO DAILY 10/03/22 [History Last Taken Unknown] budesonide-formoterol HFA 160 mcg-4.5 mcg/actuation aerosol inhaler (Symbicort) inh inhalation 10/03/22 [History Last Taken Unknown] cholecalciferol (vitamin D3) 50 mcg (2,000 unit) capsule (Vitamin D3) 50 mcg PO DAILY 10/03/22 [History Last Taken Unknown] fluticasone propionate 50 mcg/actuation nasal spray,suspension 50 spray intranasal PRN PRN Allergic Symptoms 10/03/22 [History Last Taken Unknown] gabapentin 300 mg capsule 300 mg PO QHS Check with primary doctor 10/03/22 [History Last Taken Unknown] lzzbbq-onticbiz-fqozsxk 36,000-114,000-180,000 unit capsule,delay rel (Creon) 36,000 cap PO DAILY 10/03/22 [History Last Taken Unknown] lisinopril 10 mg tablet 10 mg PO DAILY 10/03/22 [History Last Taken Unknown] loperamide 2 mg capsule 2 mg PO DAILY 10/03/22 [History Last Taken Unknown] melatonin 5 mg tablet 5 mg PO DAILY 10/03/22 [History Last Taken Unknown] metoprolol succinate 100 mg tablet,extended release 24 hr 100 mg PO DAILY 10/03/22 [History Last Taken Unknown] multivitamin tab PO DAILY 10/03/22 [History Last Taken Unknown] pantoprazole 40 mg tablet,delayed release 40 mg PO DAILY 10/03/22 [History Last Taken Unknown] pravastatin 40 mg tablet 40 mg PO DAILY 10/03/22 [History Last Taken Unknown] promethazine 25 mg tablet 25 mg PO Q6H PRN Nausea 10/03/22 [History Last Taken Unknown] Allergy/AdvReac Type Severity Reaction Status Date / Time Sulfa (Sulfonamide Allergy Swelling Verified 10/03/22 14:20 Antibiotics) Surgical History History of cholecystectomy Social History Smoking Status: Current every day smoker tobacco type: cigarettes Physical Exam Const alert HEENT normocephalic Eyes no scleral icterus Resp clear to auscultation bilaterally Cardio regular rhythm Skin no rashes or lesions noted Psych mental status grossly normal Risk Stratification Risk Stratification Applicable: No Charges/Coding Visit Charges Inpatient E&M: 73186 Init Hosp L2 Objective Data Vital Signs: Vital Signs Temp Pulse Resp BP Pulse Ox O2 Del Method 96.8 F L 74 20 H 164/96 H 99 Room Air 10/05/22 10:00 10/05/22 11:00 10/05/22 10:00 10/05/22 11:00 10/05/22 10:00 10/05/22 10:00 Oxygen Delivery Method Room Air Weight: 123 lb 9.105 oz Body Mass Index (BMI) 19.3 Intake & Output: Intake and Output for Last 24 Hours 10/03/22 10/04/22 10/05/22 23:59 23:59 23:59 Intake Total 1000 / 1000 4880 / 4880 633.3333 / 633.3333 Output Total 150 / 150 380 / 380 1200 / 1200 Balance 850 / 850 4500 / 4500 -566.6667 / -566.6667 Lab / Micro Data Result Diagrams: 10/04/22 06:15 10/05/22 05:35 Labs: Laboratory Results - last 24 hr 10/04/22 23:10: Magnesium 1.8 10/05/22 05:35: Sodium 144, Potassium 3.0 L, Chloride 119 H, Carbon Dioxide 15.0 L, Anion Gap 10, BUN 8, Creatinine 0.87, Estim Creat Clear Calc 53.69, Est GFR (MDRD) Af Amer 108, Est GFR (MDRD) Non-Af 89, BUN/Creatinine Ratio 9.2 L, Glucos e 121 H, Calcium 8.5, TSH 5.03 H Micro: Microbiology 10/03/22 20:43 Stool C. difficile DNA Amplification - Final Cardiology Labs/Tests 10/04/22 23:10: Magnesium 1.8 10/05/22 05:35: Sodium 144, Potassium 3.0 L, Chloride 119 H, Carbon Dioxide 15.0 L, Anion Gap 10, BUN 8, Creatinine 0.87, Est GFR (MDRD) Af Amer 108, Est GFR (MDRD) Non-Af 89, BUN/Creatinine Ratio 9.2 L, Glucose 121 H, Calcium 8.5 Rhythm: EKG: ECHO: Stress Test: Cardiac Cath: PCI: CT Surgery: Holter monitor: EPS: PPM: CXR: Chest CT Scan:
[2022-10-05] MEDS: dilTIAZem CD 120 MG Capsule PO (13:58)
[2022-10-05 15:05] LABS: Anion Gap 8 (5-15); BUN 8 mg/dL (7-18); BUN/Creat Ratio 7.8 RATIO (10-20); Calcium,Total 8.5 mg/dL (8.5-10.1); Chloride 121 mmol/L (98-107); Creatinine, Serum 1.03 mg/dL (0.70-1.30); EST Glomerular Filtration Rate 74 mL/min (>60); Est Glom Filt Rate - Afr Amer 89 mL/min (>60); Estimated Creatinine Clearance 45.35 ml/min; Glucose 140 mg/dL (74-106); Sodium Level 146 mmol/L (136-145)
[2022-10-05] MEDS: Creon 24,000 unit DR Capsule 3 CAP PO (16:01)
[2022-10-05] MEDS: MELATONIN 10 MG TABLET 5 MG PO (20:58)
[2022-10-05] MEDS: APIXABAN 2.5 MG TABLET (WCH) PO (21:00)
[2022-10-05] MEDS: Gabapentin 300 MG Capsule PO (21:07)
[2022-10-05] MEDS: hydrALAZINE 20 MG/ML Vial 5 MG IV (22:59)
[2022-10-06] VITALS (12 sets, daily range): BP systolic 142–194; BP diastolic 58–71; PULSE 69–79; RESP 18–20; TEMP 36.1–36.8; O2SAT 95–100
[2022-10-06] MEDS: Diphenoxylate/Atrop 1 Tablet 2 TABLET PO ×5 (00:19→22:38)
[2022-10-06] MEDS: Octreotide 0.1 MG/ML ML SC ×4 (00:20→22:40)
[2022-10-06] MEDS: Dicyclomine 10 MG Capsule 20 MG PO ×2 (00:21→06:12)
[2022-10-06] MEDS: Lisinopril 10 MG Tablet PO ×2 (02:32→14:05)
[2022-10-06] MEDS: hydrALAZINE 20 MG/ML Vial 5 MG IV ×2 (04:59→22:41)
[2022-10-06] MEDS: 0.9% Saline Lock 10 ML Syringe IV ×4 (05:04→22:44)
[2022-10-06] MEDS: Loperamide 2 MG Capsule 4 MG PO ×3 (06:19→22:38)
[2022-10-06] MEDS: Ondansetron 4 MG/2 ML Vial 8 MG IV ×3 (06:20→22:41)
[2022-10-06 06:47] LABS: Anion Gap 10 (5-15); BUN 13 mg/dL (7-18); BUN/Creat Ratio 9.5 RATIO (10-20); Calcium,Total 8.8 mg/dL (8.5-10.1); Chloride 126 mmol/L (98-107); Creatinine, Serum 1.37 mg/dL (0.70-1.30); EST Glomerular Filtration Rate 53 mL/min (>60); Est Glom Filt Rate - Afr Amer 64 mL/min (>60); Estimated Creatinine Clearance 34.09 ml/min; Glucose 158 mg/dL (74-106); Potassium 2.9 mmol/L (3.5-5.1); Sodium Level 148 mmol/L (136-145)
--- NOTE | 2022-10-06 08:07 | PN.HOSP_ITS ---
Reason for Visit Reason for Visit: Diagnoses Unspecified atrial fibrillation (10/03/22) Diarrhea, unspecified (10/03/22) Follow-up for chemotherapeutic adverse effect with intractable diarrhea and abdominal cramps Objective Data Objective Data Vital Signs: Vital Signs Temp Pulse Resp BP Pulse Ox O2 Del Method 98.2 F 76 18 170/67 H 100 Room Air 10/06/22 06:30 10/06/22 06:30 10/06/22 06:30 10/06/22 06:30 10/06/22 06:30 10/06/22 06:30 Oxygen Delivery Method Room Air Weight: 123 lb 9.105 oz Body Mass Index (BMI) 19.3 Intake & Output: Intake and Output for Last 24 Hours 10/04/22 10/05/22 10/06/22 23:59 23:59 23:59 Intake Total 4880 / 4880 993.3333 / 993.3333 860 / 860 Output Total 380 / 380 2600 / 2600 4875 / 4875 Balance 4500 / 4500 -1606.6667 / -1606.6667 -4015 / -4015 Medical Nutrition Assessment Dietitian: Malnutrition Criteria Met Start: 10/04/22 10:51 Freq: Status: Active Protocol: Document 10/04/22 16:06 RMA (Rec: 10/04/22 16:06 RMA [id number]) Nutrition Malnutrition Evidence of Malnutrition Exists Yes Malnutrition (severe): Acute Illness/Injury Evidenced By Suboptimal Energy Intake ( Severe),Weight Loss (Severe) Clinical Problem Acute Disease or Injury Related Malnutrition Etiology Severe protein-calorie malnutrition in the context of acute illness related to painful swallow, altered GI function and inadequate oral intake Signs/Symptoms as evidenced by BMI 19.4, weight loss~5% in less than 1 month and oral intake meeting less then 50% estimated nutrition needs x past 1 week Status Active Problem Recommendation Dietitian Recommendations/Changes Recommend advance diet as tolerated to regular; consider PSYCHIATRIC AIDE INSTRUCTOR swallow eval if painful swallow continues. Will add 120 ml ensure clear 4 times per day w/ medpass. Will add ensure compact TID w/ meals for tolerance. Lab / Micro Data Result Diagrams: 10/04/22 06:15 10/06/22 05:55 Labs: Laboratory Results - last 24 hr 10/05/22 13:55: Sodium 146 H, Potassium 4.0, Chloride 121 H, Carbon Dioxide 17.0 L, Anion Gap 8, BUN 8, Creatinine 1.03, Estim Creat Clear Calc 45.35, Est GFR (MDRD) Af Amer 89, Est GFR (MDRD) Non-Af 74, BUN/Creatinine Ratio 7.8 L, Glucose 140 H, Calcium 8.5 10/06/22 05:55: Sodium 148 H, Potassium 2.9 L, Chloride 126 H, Carbon Dioxide 12.0 L, Anion Gap 10, BUN 13, Creatinine 1.37 H, Estim Creat Clear Calc 34.09, Est GFR (MDRD) Af Amer 64, Est GFR (MDRD) Non-Af 53 L, BUN/Creatinine Ratio 9.5 L, Glucose 158 H, Calcium 8.8 Micro: Microbiology 10/05/22 12:40 Stool Enteric Bacteriology - Preliminary 10/03/22 20:43 Stool C. difficile DNA Amplification - Final 10/03/22 15:07 Nasal Secretion SARS-CoV-2 & FLU Antigen (Rapid) - Final Physical Exam Narrative Seen and examined. Patient is very weak, low pitched voice. Not able to sit up on its own. No acute cough but feels sinus drainage at back of throat. No fever. Still has diarrhea yesterday. Physical exam General: Alert, Oriented x3, Cooperative HEENT: Atraumatic, PERRLA, EOMI, Normocephalic Oral: Oral mucosa dry. Small reddish patch/mild sore, aphthous ulcer on left buccal mucosa Neck: Supple, No JVD, Negative Carotid Bruits Lungs: Air entry diminished in bilateral lung bases. No crepitation/rhonchi Cardiovascular: Regular rate, Regular Rhythm, Normal S1, Normal S2, No murmurs Abdomen: Bowel Sounds Present, Soft, Non Tender, Non-Distended : No renal angle tenderness. No suprapubic tenderness. Extremities: No edema, Capillary Refill Less than 3 Seconds Skin: No rashes, No breakdown Musculoskeletal: No Tenderness to Palpation of Joints or Extremities. ROM restricted, muscle strength 4+/5 at major joints. Neurological: Cranial nerves II-XII grossly intact, DTR 2+/4. No acute neurological deficit Psych/Mental Status: Flat affect. Assessment & Plan Assessment/Plan (1) Intractable diarrhea: PLAN: Plan 1. Generalized debility secondary to chronic diarrhea-on IV fluid PT and OT. Incentive spirometry. Rest as mentioned below #2 Small bowel ileus, bilateral inguinal hernia with concern for obstruction due to acute/subacute diarrhea- secondary to chemotherapeutic adverse effect/mucositis: The patient had diarrhea for 3 weeks. Empiric bacteriology panel Negative. The patient's C. difficile toxin was negative. Discussed with Dr. Patel in the morning. Patient on octreotide, scheduled Lomotil and Imodium. CT abdomen without contrast was done. CT images individually reviewed and agree with dilated stomach and fluid-filled loops of small bowel within the right inguinal hernia and colon in left renal hernia. I do not see obvious hernia swelling palpable/impulse on coughing. CT abdomen reported right inguinal hernia with a transition point. Discussed with the surgeon and CT images reviewed. We agreed there is no palpable hernial swelling Bramley due to dilated bowel loops or small hernial swelling/both. NG tube insertion ordered. I do not think patient needs any surgical intervention. #3 pancreatic cancer Whipple surgery on adjuvant chemotherapy. Patient had surgical resection and after that adjuvant chemotherapy with FOLFOX 1 cycle. After that patient was started on Irinotecan, which is DNA topoisomerase inhibitors. Complicates care, medical course, recovery, and prognosis. On pancrelipase supplement #4 Hypernatremia, hypokalemia, hyperchloremic normal anion gap metabolic acidosis and IRASEMA, prerenal etiology due to intractable diarrhea: Sodium high, potassium low. Baseline creatinine around 0.8-0.9 increased to 1.37. Group Social Worker started on bicarb drip with potassium supplement. Serum magnesium and phosphorus are in normal range. Nephrology consult requested and discussed. #5 past history of prostate cancer-complicates care, medical course, recovery, and prognosis #. Severe dehydration-patient on IV fluid #7 new onset atrial fib with rapid ventricular response-lunchroom monitor shows sinus rhythm heart rate in 70s. Patient had IV digoxin 500 mcg and then metoprolol succinate increased to 150 mg daily. Cardizem CD 120 mg daily. On Eliquis 2.5 mg twice daily. 2D echo ordered patient was evaluated by top collar maker and signed off. Total time of the visit including total time spent in counseling or coordination of care, (more than 50% of the total time, spent in obtaining medical information from nurses and other ancillary care providers,explaining to the patient about labs, imaging, diagnosis and management of active complex medical conditions), discussion with oncologist and community service coordinator, clinical update given to patient's son at bedside, review of labs and imaging is 45 minutes. Charges/Coding Visit Charges Inpatient E&M: 43396 Subs Hosp L3
--- NOTE | 2022-10-06 08:29 | CT_ITS ---
INDICATION: abdominal cramps/pain. Intractable diarrhea -- Post Chemo EXAMINATION: CT ABDOMEN AND PELVIS WITHOUT CONTRAST - CT Abdomen And Pelvis W/O Contrast Injection TECHNIQUE: Helically acquired images were obtained of the abdomen and pelvis without oral or IV contrast. A radiation dose optimization technique was used for this scan. IV Contrast dosage and agent: None. Oral contrast: None. RADIATION DOSAGE (If Supplied By Facility): CTDIvol = ( 6.31 ) mGy, DLP = ( 274.29 ) mGycm COMPARISON: FINDINGS: LOWER CHEST: Lung bases are clear. No cardiomegaly or pericardial effusion. The lack of intravenous contrast limits evaluation of solid visceral organs. LIVER: There is pneumobilia. There is a 5.5 mm low-attenuation focus within the dome of the liver (image 20 series 2). No focal mass. GALLBLADDER AND BILIARY TREE: There is nonvisualization of the gallbladder. PANCREAS: There is a dense within the pancreatic duct. There is pancreatic atrophy. SPLEEN: Normal size without focal cystic or solid mass. ADRENAL GLANDS: No nodules. KIDNEYS AND URETERS: Normal renal size and position. No hydronephrosis. PERITONEUM: No ascites or free air. No other fluid collection. BOWEL: No evidence of acute appendicitis. There are dilated fluid-filled loops of small bowel with a potential transition point within a right inguinal hernia. There are diverticula arising from the colon. There are fluid filled loops of colon. There is a left inguinal hernia containing a segment of colon. LYMPH NODES: No enlarged mesenteric or retroperitoneal lymph nodes. VESSELS: Aorta is non-dilated. There are peripheral calcifications of the abdominal aorta. URINARY BLADDER: Unremarkable. REPRODUCTIVE ORGANS: There are radiation seeds within the prostate gland. BONES: There are degenerative changes of the lumbar spine. There is a grade 1 anterior spondylolisthesis of L4 on L5. CT/Abdomen/Pelvis without Cont IMPRESSION: Dilated fluid-filled loops of small bowel concerning for a small bowel obstruction with a transition point within a right inguinal hernia. Fluid-filled loops of colon cannot exclude colitis. Atherosclerosis. Indeterminate 5.5 mm low-attenuation focus within the liver, cannot exclude a neoplastic process. Pancreatic atrophy likely related to known malignancy. Colonic diverticulosis. Left inguinal hernia containing a segment of colon without an associated obstruction. Electronically Signed: Maya Jason MD at 9:28 EDT ,
[2022-10-06 09:12] LABS: Magnesium 2.1 mg/dL (1.6-2.6); Phosphorus 3.7 mg/dL (2.5-4.9)
--- NOTE | 2022-10-06 09:41 | CON.PCM.RE_ITS ---
Assessment & Plan Assessment/Plan (1) Intractable diarrhea: (2) Hypokalemia: (3) IRASEMA (acute kidney injury): (4) Metabolic acidosis: (5) Atrial fibrillation: PLAN: Plan This is a very pleasant 82-year-old male with past medical history significant for pancreatic cancer admitted for evaluation of diarrhea. We were consulted for hypokalemia, IRASEMA, metabolic acidosis. Patient's potassium on admission 3.3. He has been having profuse diarrhea. He has rectal tube. Stool studies so far negative; C. difficile and enteric pathogen panel all normal. For his diarrhea patient has been receiving Bentyl, octreotide, Lomotil, Imodium. He has been getting potassium replacements. Today his potassium is at 2.9. Patient's bicarb level 20 on admission, today his bicarb is now worsened to 12.0. Bicarb and potassium normal at baseline. Mag level is normal at 2.1 and was normal on admission. Likely hypokalemia, metabolic acidosis secondary to significant GI losses. We will start patient on bicarb drip with potassium replacement. Phosphorus is 3.7. For IRASEMA, baseline creatinine normal ranging 0.8 to 1 mg/dL. Serum creatinine was 1.13 mg/dL on admission, yesterday his creatinine 0.87 and today serum creatinine slightly elevated at 1.37 mg/dL. Likely IRASEMA secondary to significant volume depletion and hemodynamics from A-fib. Patient is nonoliguric and is hypovolemic. There is no acute indication for DIRECTOR MERIT SYSTEM. Patient had CT of abdomen and pelvis this morning, no hydronephrosis, normal renal size and position. Patient is on low-dose lisinopril and we will continue this for now. His blood pressures are elevated. If serum creatinine worsens then likely will stop lisinopril. Encouraged patient to try and increase solute intake as best as he can, recommended food choices higher in potassium. Patient also noted to have sodium level of 148 today likely from lack of free water intake and poor oral intake. Encouraged patient to try to increase oral intake as best as he can. Further orders forthcoming as hospitalization evolves, thank you for allowing us participate in the care of Mr. Contreras. HPI Consult Data Date of Consult: 10/06/22 HPI Narrative HPI Narrative: MASSIEL CONTRERAS, is a 82 M with past medical history significant for pancreatic cancer status post Whipple's surgery, started on chemotherapy who presented to the emergency room on October 03 with complaints of protracted diarrhea after receiving 2 courses of chemotherapy. Patient was admitted for further evaluation and treatment. We were consulted for hypokalemia, IRASEMA, metabolic acidosis. Patient reports that he is feeling very thirsty. Reports he has had no appetite. Patient has rectal tube and has been having profuse diarrhea since admission. Patient and son (who is at bedside) report that they feel diarrhea has slowed up today. Patient denies any vomiting. During this hospitalization patient did go into A- fib. FORMERLY [facility], [facility]–1983 Medical History Alcohol abuse Cancer COPD (chronic obstructive pulmonary disease) Hypertension Pancreatic cancer Smoker Home Medications amlodipine 10 mg tablet 10 mg PO DAILY 10/03/22 [History Last Taken Unknown] ascorbic acid (vitamin C) 250 mg tablet (Vitamin C) 250 mg PO DAILY 10/03/22 [History Last Taken Unknown] bicalutamide 50 mg tablet 50 mg PO DAILY 10/03/22 [History Last Taken Unknown] budesonide-formoterol HFA 160 mcg-4.5 mcg/actuation aerosol inhaler (Symbicort) inh inhalation 10/03/22 [History Last Taken Unknown] cholecalciferol (vitamin D3) 50 mcg (2,000 unit) capsule (Vitamin D3) 50 mcg PO DAILY 10/03/22 [History Last Taken Unknown] fluticasone propionate 50 mcg/actuation nasal spray,suspension 50 spray intranasal PRN PRN Allergic Symptoms 10/03/22 [History Last Taken Unknown] gabapentin 300 mg capsule 300 mg PO QHS Check with primary doctor 10/03/22 [History Last Taken Unknown] uzgrit-bthnthap-ybyfboc 36,000-114,000-180,000 unit capsule,delay rel (Creon) 36,000 cap PO DAILY 10/03/22 [History Last Taken Unknown] lisinopril 10 mg tablet 10 mg PO DAILY 10/03/22 [History Last Taken Unknown] loperamide 2 mg capsule 2 mg PO DAILY 10/03/22 [History Last Taken Unknown] melatonin 5 mg tablet 5 mg PO DAILY 10/03/22 [History Last Taken Unknown] metoprolol succinate 100 mg tablet,extended release 24 hr 100 mg PO DAILY [History Last Taken Unknown] multivitamin tab PO DAILY 10/03/22 [History Last Taken Unknown] pantoprazole 40 mg tablet,delayed release 40 mg PO DAILY 10/03/22 [History Last Taken Unknown] pravastatin 40 mg tablet 40 mg PO DAILY 10/03/22 [History Last Taken Unknown] promethazine 25 mg tablet 25 mg PO Q6H PRN Nausea 10/03/22 [History Last Taken Unknown] Allergy/AdvReac Type Severity Reaction Status Date / Time Sulfa (Sulfonamide Allergy Swelling Verified 10/03/22 14:20 Antibiotics) Surgical History History of cholecystectomy Social History Smoking Status: Current every day smoker tobacco type: cigarettes ROS ROS Narrative As in HPI Physical Exam Narrative Alert oriented x3, no apparent distress mucous membranes very dry S1, S2, rhythm irregular rate controlled Lung sounds clear anteriorly and posteriorly. No wheezes rhonchi rales noted Abdomen soft, hypoactive bowel sounds No edema Rectal tube Medical Records Data Medical Nutrition Assessment Dietitian: Malnutrition Criteria Met Start: 10/04/22 10:51 Freq: Status: Active Protocol: Document 10/04/22 16:06 RMA (Rec: 10/04/22 16:06 RMA [id number]) Nutrition Malnutrition Evidence of Malnutrition Exists Yes Malnutrition (severe): Acute Illness/Injury Evidenced By Suboptimal Energy Intake ( Severe),Weight Loss (Severe) Clinical Problem Acute Disease or Injury Related Malnutrition Etiology Severe protein-calorie malnutrition in the context of acute illness related to painful swallow, altered GI function and inadequate oral intake Signs/Symptoms as evidenced by BMI 19.4, weight loss~5% in less than 1 month and oral intake meeting less then 50% estimated nutrition needs x past 1 week Status Active Problem Recommendation Dietitian Recommendations/Changes Recommend advance diet as tolerated to regular; consider MAGNAFLUX OPERATOR swallow eval if painful swallow continues. Will add 120 ml ensure clear 4 times per day w/ medpass. Will add ensure compact TID w/ meals for tolerance. Lab / Micro Data Result Diagrams: 10/04/22 06:15 10/06/22 05:55 Labs: Laboratory Results - last 24 hr 10/05/22 13:55: Sodium 146 H, Potassium 4.0, Chloride 121 H, Carbon Dioxide 17.0 L, Anion Gap 8, BUN 8, Creatinine 1.03, Estim Creat Clear Calc 45.35, Est GFR (MDRD) Af Amer 89, Est GFR (MDRD) Non-Af 74, BUN/Creatinine Ratio 7.8 L, Glucose 140 H, Calcium 8.5 10/06/22 05:55: Sodium 148 H, Potassium 2.9 L, Chloride 126 H, Carbon Dioxide 12.0 L, Anion Gap 10, BUN 13, Creatinine 1.37 H, Estim Creat Clear Calc 34.09, Est GFR (MDRD) Af Amer 64, Est GFR (MDRD) Non-Af 53 L, BUN/Creatinine Ratio 9.5 L, Glucose 158 H, Calcium 8.8 10/06/22 05:55: Phosphorus 3.7, Magnesium 2.1 Micro: Microbiology 10/05/22 12:40 Stool Enteric Bacteriology - Preliminary Radiology Impression Abdomen/Pelvis CT 10/06/22 08:29 IMPRESSION: Dilated fluid-filled loops of small bowel concerning for a small bowel obstruction with a transition point within a right inguinal hernia. Fluid-filled loops of colon cannot exclude colitis. Atherosclerosis. Indeterminate 5.5 mm low-attenuation focus within the liver, cannot exclude a neoplastic process. Pancreatic atrophy likely related to known malignancy. Colonic diverticulosis. Left inguinal hernia containing a segment of colon without an associated obstruction. Electronically Signed: Maya Jason MD at 9:28 EDT ,
--- NOTE | 2022-10-06 10:24 | EX.PCM.CON.S ---
Assessment & Plan Assessment/Plan (1) Bilateral inguinal hernia: (2) SBO (small bowel obstruction): PLAN: Plan Once echo is completed will examine patient. Per CT hernia appear reducible. Patient does have a dilated stomach as well as dilated small bowel would recommend NG placement initially and likely small bowel follow-through with Gastrografin in the future. Addendum: Unable to feel any obvious hernias on either side likely due to the fact that they are small and also there is liquid filled bowel in both of them, my read no CT does not appear to have passive obstruction at the right inguinal hernia as it appears to be dilated both before and after going into the hernia. I do agree that there is dilated stomach and small bowel recommend NG to help patient's symptoms of nausea. Lilo Mclaughlin M.D. Pager: [phone] [facility] [address] [place] [address], [facility], [address] [place] [id number] Office: [phone] HPI Consult Data Date of Consult: 10/06/22 HPI Narrative Reason for Consultation: Small bowel, inguinal hernias bilaterally HPI Narrative: MASSIEL CONTRERAS, is a 82 M who admitted to the floor due to IRASEMA, hypokalemia, intractable diarrhea. Patient was complaining of crampy lower right abdominal pain CT abdomen pelvis was done which did show dilated stomach and small bowel along with small inguinal hernias bilaterally. Right inguinal hernia was called for transition point left inguinal hernia containing a small amount of sigmoid colon. There is liquid stool throughout colon and small bowel. Currently patient is getting an echo. Patient states he is crampy right abdominal pain just started this morning along with the nausea. Patient's sons also in the room. Patient has not had much of an appetite since his last chemo treatment about 2 weeks ago where they added a third drug. Patient did undergo a Whipple at [facility] in late June. Patient began chemotherapy about a month after surgery. Patient denies noticing a bulge in either groin currently or history of. Patient admits to nausea currently and occasional crampy abdominal pain. PFSH Medical History Alcohol abuse Cancer COPD (chronic obstructive pulmonary disease) Hypertension Pancreatic cancer Smoker Home Medications amlodipine 10 mg tablet 10 mg PO DAILY 10/03/22 [History Last Taken Unknown] ascorbic acid (vitamin C) 250 mg tablet (Vitamin C) 250 mg PO DAILY 10/03/22 [History Last Taken Unknown] bicalutamide 50 mg tablet 50 mg PO DAILY 10/03/22 [History Last Taken Unknown] budesonide-formoterol HFA 160 mcg-4.5 mcg/actuation aerosol inhaler (Symbicort) inh inhalation 10/03/22 [History Last Taken Unknown] cholecalciferol (vitamin D3) 50 mcg (2,000 unit) capsule (Vitamin D3) 50 mcg PO DAILY 10/03/22 [History Last Taken Unknown] fluticasone propionate 50 mcg/actuation nasal spray,suspension 50 spray intranasal PRN PRN Allergic Symptoms 10/03/22 [History Last Taken Unknown] gabapentin 300 mg capsule 300 mg PO QHS Check with primary doctor 10/03/22 [History Last Taken Unknown] pvhfuc-tveipvbc-kwssfsl 36,000-114,000-180,000 unit capsule,delay rel (Creon) 36,000 cap PO DAILY 10/03/22 [History Last Taken Unknown] lisinopril 10 mg tablet 10 mg PO DAILY 10/03/22 [History Last Taken Unknown] loperamide 2 mg capsule 2 mg PO DAILY 10/03/22 [History Last Taken Unknown] melatonin 5 mg tablet 5 mg PO DAILY 10/03/22 [History Last Taken Unknown] metoprolol succinate 100 mg tablet,extended release 24 hr 100 mg PO DAILY 10/03/22 [History Last Taken Unknown] multivitamin tab PO DAILY 10/03/22 [History Last Taken Unknown] pantoprazole 40 mg tablet,delayed release 40 mg PO DAILY 10/03/22 [History Last Taken Unknown] pravastatin 40 mg tablet 40 mg PO DAILY 10/03/22 [History Last Taken Unknown] promethazine 25 mg tablet 25 mg PO Q6H PRN Nausea 10/03/22 [History Last Taken Unknown] Allergy/AdvReac Type Severity Reaction Status Date / Time Sulfa (Sulfonamide Allergy Swelling Verified 10/03/22 14:20 Antibiotics) Surgical History History of cholecystectomy Social History Smoking Status: Current every day smoker tobacco type: cigarettes Physical Exam Const alert General Appearance: frail HEENT normocephalic Resp normal respiratory effort Cardio Rate: regular rate GI soft to palpation and non-tender GI Narrative: Possibly reduce the right inguinal hernia-- no obvious hernia on exam currently in the right inguinal and left inguinal. Mild distention, well-healed midline incision Extremity normal to inspection Skin no rashes or lesions noted Neuro CN's II-XII intact bilaterally Psych affect normal Medical Records Data Medical Nutrition Assessment Dietitian: Malnutrition Criteria Met Start: 10/04/22 10:51 Freq: Status: Active Protocol: Document 10/04/22 16:06 RMA (Rec: 10/04/22 16:06 RMA [id number]) Nutrition Malnutrition Evidence of Malnutrition Exists Yes Malnutrition (severe): Acute Illness/Injury Evidenced By Suboptimal Energy Intake ( Severe),Weight Loss (Severe) Clinical Problem Acute Disease or Injury Related Malnutrition Etiology Severe protein-calorie malnutrition in the context of acute illness related to painful swallow, altered GI function and inadequate oral intake Signs/Symptoms as evidenced by BMI 19.4, weight loss~5% in less than 1 month and oral intake meeting less then 50% estimated nutrition needs x past 1 week Status Active Problem Recommendation Dietitian Recommendations/Changes Recommend advance diet as tolerated to regular; consider [employer] swallow eval if painful swallow continues. Will add 120 ml ensure clear 4 times per day w/ medpass. Will add ensure compact TID w/ meals for tolerance. Lab / Micro Data Result Diagrams: 10/04/22 06:15 10/06/22 05:55 Labs: Laboratory Results - last 24 hr 10/05/22 13:55: Sodium 146 H, Potassium 4.0, Chloride 121 H, Carbon Dioxide 17.0 L, Anion Gap 8, BUN 8, Creatinine 1.03, Estim Creat Clear Calc 45.35, Est GFR (MDRD) Af Amer 89, Est GFR (MDRD) Non-Af 74, BUN/Creatinine Ratio 7.8 L, Glucose 140 H, Calcium 8.5 10/06/22 05:55: Sodium 148 H, Potassium 2.9 L, Chloride 126 H, Carbon Dioxide 12.0 L, Anion Gap 10, BUN 13, Creatinine 1.37 H, Estim Creat Clear Calc 34.09, Est GFR (MDRD) Af Amer 64, Est GFR (MDRD) Non-Af 53 L, BUN/Creatinine Ratio 9.5 L, Glucose 158 H, Calcium 8.8 10/06/22 05:55: Phosphorus 3.7, Magnesium 2.1 Micro: Microbiology 10/05/22 12:40 Stool Enteric Bacteriology - Preliminary Radiology Impression Abdomen/Pelvis CT 10/06/22 08:29 IMPRESSION: Dilated fluid-filled loops of small bowel concerning for a small bowel obstruction with a transition point within a right inguinal hernia. Fluid-filled loops of colon cannot exclude colitis. Atherosclerosis. Indeterminate 5.5 mm low-attenuation focus within the liver, cannot exclude a neoplastic process. Pancreatic atrophy likely related to known malignancy. Colonic diverticulosis. Left inguinal hernia containing a segment of colon without an associated obstruction. Electronically Signed: Maya Jason MD at 9:28 EDT , Charges/Coding Visit Charges Inpatient E&M: 11836 Init Hosp L3
--- NOTE | 2022-10-06 10:39 | NURSING ---
cardiac monitoring per computerized system. Charge nurse monitoring at desk as well
--- NOTE | 2022-10-06 11:16 | CASEMGMT ---
KARRI spoke with Radha in TCU and they can take patient. Patient's son Sky called Dr Patel's office and canceled his chemo until he gets stronger. KARRI met with patient and his son Sky. KARRI introduced self and role at [facility]. SW let both know that TCU can take patient when he is ready for discharge. Plan: [facility] TCU when medically ready. Harini WYMAN
[2022-10-06] MEDS: Oxymetazoline 0.05% 1 SPRAY SPRAY.BTL 2 SPRAY NASAL (11:51)
--- NOTE | 2022-10-06 12:05 | RAD_ITS ---
INDICATION: NG INSERTION -- KUB with both diaphragms for NG/OG Verification EXAMINATION/TECHNIQUE: X-RAY - XR Abdomen 1 View COMPARISON: FINDINGS: BOWEL GAS PATTERN: There is an enteric tube in place with its tip within the expected region of the gastric fundus. Non-obstructive. No bowel or stomach distention. FREE AIR: Not assessed on a single supine view. ORGANOMEGALY: Not seen. CALCIFICATIONS: No abnormal calcifications observed. LOWER CHEST: No acute pathology. There is a central venous catheter with its tip within the expected region of the superior vena cava. BONES AND SOFT TISSUES: There is a pancreatic duct stent in place. RAD/Abdomen Single View (Portable) IMPRESSION: Enteric tube terminating within the expected region of the gastric fundus. Electronically Signed: Maya Jason MD at 13:23 EDT ,
--- NOTE | 2022-10-06 12:05 | NURSING ---
radiology aware of NGT down, and needing xray. pt tolerated no difficulty. spo2 100% on room air, hr 69.
[2022-10-06 12:30] LABS: Pathologist Review Reviewed
[2022-10-06 12:30] LABS: Pathologist Review Reviewed
[2022-10-06] MEDS: Potassium Chloride Oral Tablet 20 MEQ 40 MEQ PO ×2 (14:02)
[2022-10-06] MEDS: Cholecalciferol (VIT D3) 25 MCG TABLET (1,000 UNITS) 50 MCG PO ×2 (14:02→14:06)
[2022-10-06] MEDS: Pantoprazole Sodium 40 MG Tablet PO (14:03)
[2022-10-06] MEDS: APIXABAN 2.5 MG TABLET (WCH) PO ×2 (14:03→22:38)
[2022-10-06] MEDS: Metoprolol(XL)Succ 100 MG Tablet 150 MG PO (14:03)
[2022-10-06] MEDS: Menthol/Lanolin/Calamine/Znox 113 GM Tube 1 APPLIC TOPICAL ×2 (14:04→22:38)
[2022-10-06] MEDS: dilTIAZem CD 120 MG Capsule PO (14:04)
[2022-10-06] MEDS: Pravastatin 40 MG Tablet PO (14:04)
[2022-10-06] MEDS: Ascorbic Acid 500 MG Tablet 250 MG PO (14:05)
[2022-10-06] MEDS: Creon 24,000 unit DR Capsule 3 CAP PO (17:15)
[2022-10-06] MEDS: NYSTATIN 500,000 UNIT/5 ML UDC 500000 UNIT PO ×3 (17:16→22:40)
--- NOTE | 2022-10-06 17:32 | CON.PCM.ON_ITS ---
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 -Hyperchloremic acidosis secondary to diarrhea. -IRASEMA likely secondary to prerenal azotemia. -Abdominal pain and distention associated with nausea and vomiting. -Recent Whipple surgery. -Neutrophils starting to recover. Recommendations: -CT abdomen pelvis without IV contrast. -Consult nephrology for fluid and electrolyte management. -Continue octreotide 100 mcg SQ every 8 hours. -Lomotil 2 tablets every 6 hours [id number]. -Will follow. HPI Consult Data Date of Service:: 10/06/22 PCP / Referring Provider: Dr. Denny Dietrich MD Attending: Dr. Christ Shipman MD Chief Complaint Chief Complaint: Diarrhea History of Present Illness History of Present Illness: Patient seen and examined earlier today. Oncologic problem(s): 1) pT1c N1 (2 LNs positive) M0 stage IIB pancreas cancer. ? HPI: The patient is an 82-year-old male with past medical history significant for hypertension, mixed hyperlipidemia, former smoker, lumbar spinal stenosis, COPD, GERD, prostate cancer and pancreatic cancer. ? Patient's prostate cancer was diagnosed in 2009. ?He had brachytherapy with decrease in PSA. ?However in about 2019 he had a rising PSA and was started on androgen deprivation therapy with decrease in PSA. ?He had been treated in the [place] area at the [facility], [place]. ? Was on intermittent ADT. Recalled most recent PSA was 0.17 ng/mL. Most recent injection was or 04/2022. No hot flashes. ? Remains on bicalutamide. ? He could void to completion during the day. Typically 3-4 episodes nocturia. No gross hematuria or dysuria. More recently the patient presented with painless jaundice and was found to have a pancreatic head mass. ? EGD with EUS on June 27, 2022 showed an irregular hypoechoic and heterogeneous mass in the neck of the gallbladder that was felt to be a remnant with subhepatic extension pancreatic head was benign. ? Biliary stricture was found in the middle third of the main bile duct malignant appearing metal stent was placed. ? Biopsy from the bile duct and June 27, 2022 shows at least high-grade dysplasia with focus suspicious for invasive adenocarcinoma. ? Underwent pancreaticoduodenectomy July 21, 2022 . ?There was no evidence of metastatic disease. ?Overall postoperative course was relatively benign. ?He did have need for 1 unit of packed red blood cells. Pathology showed pancreatic ductal adenocarcinoma 1.7 cm in size moderately differentiated. ?Extended beyond the pancreas to involve anterior peripancreatic fat bile duct. ?Lymphovascular and perineural invasion were noted. ?Two of 33 lymph nodes involved with metastatic disease. Adenocarcinoma present less than 1 mm from the vascular groove surface. ?Bile duct margin excision was negative for adenocarcinoma and high-grade dysplasia. ?Same for the cystic duct remnant excision. The pathology was reviewed by the multidisciplinary hepatobiliary tumor board. ?This was felt more likely to be pancreatic than cholangiocarcinoma and adjuvant chemotherapy was recommended. ? Per initial consultation with me-- Good appetite. Taste had returned. No dysphagia, reflux or heartburn. No abdominal pain. Occasional constipation and diarrhea. Normal colored stools. ? Occasional numbness in left hand. ? No gross hematuria or dysuria. ? COPD--can climb steps but is limited by decreased strength in legs. ? LBP if walks a while--tired feeling in back. Diagnosed with lumbar spinal stenosis in the past. Was an element of right sciatica. Takes gabapentin and had full relief of the radicular pain. ? Had epidural injections in cervical spine as well without relief of right arm numbness. Gabapentin has helped that as well. He received the first cycle of adjuvant chemotherapy consisting of FOLFOX on 09/08. He tolerated therapy well. He was found to have normal genotype for [id number] and therefore irinotecan at reduced dose was added second cycle on 09/24/2022. He developed diarrhea last week. He was having numerous watery episodes per day. He was brought to the office 3 days in a row for hydration and electrolyte replacement. On Thursday, the diarrhea had not improved and he was sent to the emergency room here. His diarrhea had continued. I was contacted by the hospitalist yesterday. I advised starting octreotide 100 mcg subcu every 8 hours and scheduling Lomotil 2 tablets every 6 hours. Rectal tube was placed. He developed atrial fibrillation with RVR yesterday. Converted to normal sinus rhythm medically. Was evaluated by cardiology. As of this morning, he continues to have diarrhea. He has hypokalemia with significant decline in serum bicarbonate with increase chloride and hypernatremia. He is also complaining of abdominal pain and nausea. Advanced Directives Power of Respiratory Supervisor: Yes Living Will: Yes PFSH Medical History Alcohol abuse Cancer COPD (chronic obstructive pulmonary disease) Hypertension Pancreatic cancer Smoker Home Medications amlodipine 10 mg tablet 10 mg PO DAILY 10/03/22 [History Last Taken Unknown] ascorbic acid (vitamin C) 250 mg tablet (Vitamin C) 250 mg PO DAILY 10/03/22 [History Last Taken Unknown] bicalutamide 50 mg tablet 50 mg PO DAILY 10/03/22 [History Last Taken Unknown] budesonide-formoterol HFA 160 mcg-4.5 mcg/actuation aerosol inhaler (Symbicort) inh inhalation 10/03/22 [History Last Taken Unknown] cholecalciferol (vitamin D3) 50 mcg (2,000 unit) capsule (Vitamin D3) 50 mcg PO DAILY 10/03/22 [History Last Taken Unknown] fluticasone propionate 50 mcg/actuation nasal spray,suspension 50 spray intranasal PRN PRN Allergic Symptoms 10/03/22 [History Last Taken Unknown] gabapentin 300 mg capsule 300 mg PO QHS Check with primary doctor 10/03/22 [History Last Taken Unknown] biyaxc-tfwzszgr-hmixaak 36,000-114,000-180,000 unit capsule,delay rel (Creon) 36,000 cap PO DAILY 10/03/22 [History Last Taken Unknown] lisinopril 10 mg tablet 10 mg PO DAILY 10/03/22 [History Last Taken Unknown] loperamide 2 mg capsule 2 mg PO DAILY 10/03/22 [History Last Taken Unknown] melatonin 5 mg tablet 5 mg PO DAILY 10/03/22 [History Last Taken Unknown] metoprolol succinate 100 mg tablet,extended release 24 hr 100 mg PO DAILY 10/03/22 [History Last Taken Unknown] multivitamin tab PO DAILY 10/03/22 [History Last Taken Unknown] pantoprazole 40 mg tablet,delayed release 40 mg PO DAILY 10/03/22 [History Last Taken Unknown] pravastatin 40 mg tablet 40 mg PO DAILY 10/03/22 [History Last Taken Unknown] promethazine 25 mg tablet 25 mg PO Q6H PRN Nausea 10/03/22 [History Last Taken Unknown] Allergy/AdvReac Type Severity Reaction Status Date / Time Sulfa (Sulfonamide Allergy Swelling Verified 10/03/22 14:20 Antibiotics) Surgical History History of cholecystectomy Social History Smoking Status: Current every day smoker tobacco type: cigarettes Physical Exam Const alert Eyes no scleral icterus Resp normal respiratory effort Cardio regular rhythm GI GI Narrative: Abdomen distended and tympanic to percussion. Skin no jaundice Vital Signs Temperature 97.1 F L 10/06/22 17:13 Temperature Source Temporal 10/06/22 17:13 Pulse Rate 70 10/06/22 17:13 Pulse Strength Normal (2+) 10/05/22 22:00 Respiratory Rate 20 H 10/06/22 17:13 Respiratory Effort Non-Labored 10/06/22 04:50 Respiratory Depth Normal 10/06/22 04:50 Respiratory Pattern Normal 10/06/22 04:50 Blood Pressure 157/58 H 10/06/22 17:13 Blood Pressure Mean 91 10/06/22 17:13 Blood Pressure Source Monitor 10/06/22 17:13 Blood Pressure Position Supine 10/06/22 17:13 Blood Pressure Location Left Arm 10/06/22 17:13 Pulse Ox 95 10/06/22 17:13 Oxygen Delivery Method Room Air 10/06/22 17:13 Laboratory Results - last 24 hr 10/03/22 14:45: Diff Path Review Reviewed 10/04/22 06:15: Diff Path Review Reviewed 10/06/22 05:55: Sodium 148 H, Potassium 2.9 L, Chloride 126 H, Carbon Dioxide 12.0 L, Anion Gap 10, BUN 13, Creatinine 1.37 H, Estim Creat Clear Calc 34.09, Est GFR (MDRD) Af Amer 64, Est GFR (MDRD) Non-Af 53 L, BUN/Creatinine Ratio 9.5 L, Glucose 158 H, Calcium 8.8 10/06/22 05:55: Phosphorus 3.7, Magnesium 2.1 Microbiology 10/05/22 12:40 Stool Enteric Bacteriology - Final Diagnostic Data Brain CT 10/03/22 14:35 IMPRESSION: Chronic involutional changes of the brain. Electronically Signed: Nick Garcia MD at 15:34 EDT , Hip/Pelvis X-Ray 10/03/22 15:20 IMPRESSION: No definite acute or significant abnormality seen. Electronically Signed: Ulises Romero MD at 16:47 EDT , Echocardiogram 10/05/22 09:25 Interpretation Summary Normal LV size. Left ventricular systolic function is hyperdynamic. Lipomatous hypertrophy of the atrial septum. Pulmonary artery systolic pressure is 30 mmHg. Contrast injection was performed. Ordering Physician: Moises Moore Referring Physician: Denny Dietrich Performed By: Amelia Deal, RDCS, RVT Abdomen/Pelvis CT 10/06/22 08:29 IMPRESSION: Dilated fluid-filled loops of small bowel concerning for a small bowel obstruction with a transition point within a right inguinal hernia. Fluid-filled loops of colon cannot exclude colitis. Atherosclerosis. Indeterminate 5.5 mm low-attenuation focus within the liver, cannot exclude a neoplastic process. Pancreatic atrophy likely related to known malignancy. Colonic diverticulosis. Left inguinal hernia containing a segment of colon without an associated obstruction. Electronically Signed: Maya Jason MD at 9:28 EDT , KUB X-Ray 10/06/22 12:05 IMPRESSION: Enteric tube terminating within the expected region of the gastric fundus. Electronically Signed: Maya Jason MD at 13:23 EDT ,
[2022-10-06] MEDS: MELATONIN 10 MG TABLET 5 MG PO (22:37)
[2022-10-06] MEDS: Gabapentin 300 MG Capsule PO (22:38)
[2022-10-07] VITALS (11 sets, daily range): BP systolic 122–175; BP diastolic 43–78; PULSE 73–106; RESP 18–28; TEMP 36.4–36.8; O2SAT 10–100
[2022-10-07] MEDS: Dicyclomine 10 MG Capsule 20 MG PO ×2 (00:57→06:38)
[2022-10-07] MEDS: Loperamide 2 MG Capsule 4 MG PO ×2 (01:47→06:39)
[2022-10-07] MEDS: Octreotide 0.1 MG/ML ML SC ×2 (06:39→15:54)
[2022-10-07] MEDS: 0.9% Saline Lock 10 ML Syringe IV ×6 (06:40→18:59)
[2022-10-07] MEDS: Ondansetron 4 MG/2 ML Vial 8 MG IV ×3 (06:40→22:00)
[2022-10-07 07:19] LABS: Albumin, Serum 2.6 g/dL (3.2-5.0); BUN 24 mg/dL (7-18); BUN/Creat Ratio 8.4 RATIO (10-20); Calcium,Total 8.8 mg/dL (8.5-10.1); Chloride 122 mmol/L (98-107); Creatinine, Serum 2.85 mg/dL (0.70-1.30); EST Glomerular Filtration Rate 23 mL/min (>60); Est Glom Filt Rate - Afr Amer 28 mL/min (>60); Estimated Creatinine Clearance 16.39 ml/min; Glucose 159 mg/dL (74-106); Phosphorus 1.6 mg/dL (2.5-4.9); Sodium Level 144 mmol/L (136-145)
--- NOTE | 2022-10-07 07:44 | PN.ONC_ITS ---
Subjective Subjective Events of yesterday noted. CT noted. NG placed. Appreciate nephrology recommendations. Night nursing reports bladder scan this am 10 cc. Small amount urine in urinal last night and small amount in diaper this am. 1000 cc diarrhea output in last 24 hours. Scant amount since midnight. 1000 cc NG output in last 24 hours. Knows where he is this morning. Physical Exam Const alert HEENT HEENT Narrative: Dry mucous membranes. Eyes no scleral icterus Cardio regular rhythm GI GI Narrative: Abdomen less distended. Tender LUQ. Vital Signs Temperature 98 F 10/07/22 03:55 Temperature Source Oral 10/07/22 03:55 Pulse Rate 75 10/07/22 03:55 Pulse Strength Normal (2+) 10/06/22 22:00 Respiratory Rate 20 H 10/07/22 03:55 Respiratory Effort Non-Labored 10/07/22 04:00 Respiratory Depth Normal 10/07/22 04:00 Respiratory Pattern Normal 10/07/22 04:00 Blood Pressure 155/75 H 10/07/22 03:55 Blood Pressure Mean 101 10/07/22 03:55 Blood Pressure Source Monitor 10/07/22 03:55 Blood Pressure Position Semi-Fowlers 10/07/22 03:55 Blood Pressure Location Left Arm 10/07/22 03:55 Pulse Ox 100 10/07/22 04:00 Oxygen Delivery Method Room Air 10/07/22 04:00 Laboratory Results - last 24 hr 10/03/22 14:45: Diff Path Review Reviewed 10/04/22 06:15: Diff Path Review Reviewed 10/06/22 05:55: Phosphorus 3.7, Magnesium 2.1 10/07/22 06:30: Sodium 144, Potassium 3.0 L, Chloride 122 H, Carbon Dioxide 12.0 L, BUN 24 H, Creatinine 2.85 H, Estim Creat Clear Calc 16.39, Est GFR (MDRD) Af Amer 28 L, Est GFR (MDRD) Non-Af 23 L, BUN/Creatinine Ratio 8.4 L, Glucose 159 H , Calcium 8.8, Phosphorus 1.6 L, Albumin 2.6 L Microbiology 10/05/22 12:40 Stool Enteric Bacteriology - Final Diagnostic Data Brain CT 10/03/22 14:35 IMPRESSION: Chronic involutional changes of the brain. Electronically Signed: Nick Garcia MD at 15:34 EDT , Hip/Pelvis X-Ray 10/03/22 15:20 IMPRESSION: No definite acute or significant abnormality seen. Electronically Signed: Ulises Romero MD at 16:47 EDT , Echocardiogram 10/05/22 09:25 Interpretation Summary Normal LV size. Left ventricular systolic function is hyperdynamic. Lipomatous hypertrophy of the atrial septum. Pulmonary artery systolic pressure is 30 mmHg. Contrast injection was performed. Ordering Physician: Moises Moore Referring Physician: Denny Dietrich Performed By: Amelia Deal, VINICIO, RVT Abdomen/Pelvis CT 10/06/22 08:29 IMPRESSION: Dilated fluid-filled loops of small bowel concerning for a small bowel obstruction with a transition point within a right inguinal hernia. Fluid-filled loops of colon cannot exclude colitis. Atherosclerosis. Indeterminate 5.5 mm low-attenuation focus within the liver, cannot exclude a neoplastic process. Pancreatic atrophy likely related to known malignancy. Colonic diverticulosis. Left inguinal hernia containing a segment of colon without an associated obstruction. Electronically Signed: Maya Jason MD at 9:28 EDT , KUB X-Ray 10/06/22 12:05 IMPRESSION: Enteric tube terminating within the expected region of the gastric fundus. 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 -Hyperchloremic acidosis secondary to diarrhea. -IRASEMA likely secondary to prerenal azotemia. Cr increasing. -SBO. Appreciate Dr. Mclaughlin's expertise. -Recent Whipple surgery. -Fluid output in excess of input. Recommendations: -Bolus fluids and increase rate basal IVFs. Discussed with Dr. Shipman. -Allow sips and popsicles. -Check CBC with diff today. -Continue octreotide 100 mcg SQ every 8 hours. -Discussed code status. He has living will and will discuss DNR-CC arrest with Dr. Shipman. -Will follow.
[2022-10-07] MEDS: Lactated Ringers 1,000 ML 999 ML IV ×3 (08:40→12:20)
--- NOTE | 2022-10-07 08:56 | RAD_ITS ---
STUDY: X-RAY - ABDOMEN/PELVIS REASON FOR EXAM: Male, 82 years old. Pain. Evaluate for small bowel obstruction/ileus. TECHNIQUE: Single AP view of the abdomen / pelvis. COMPARISON: October 06, 2022. FINDINGS: Normal lung bases. Stable NG tube with tip projected over the left upper quadrant. Nonspecific bowel gas pattern with mild gaseous distention of bowel in the right upper quadrant to 6.8 cm. Gas seen to the rectosigmoid. There is no demonstrated free abdominal air. The visualized liver, spleen and kidneys are grossly normal in size and morphology. Normal soft tissue structures. Normal visualized osseous structures. RAD/Abdomen Single View (Portable) IMPRESSION: Mild dilatation of bowel in the right upper quadrant with no acute finding. Electronically Signed: Sumeet Lewis, at 9:43 EDT ,
[2022-10-07 08:58] LABS: Magnesium 1.9 mg/dL (1.6-2.6)
--- NOTE | 2022-10-07 08:58 | PCM.PN.SRG ---
Subjective Subjective Patient had a liter out prior nursing report of NG, also liter of diarrhea yesterday. Patient's creatinine is elevated this morning likely due to dehydration. Patient also was complaining of left-sided abdominal pain which he previously was not having. Objective Data Objective Data Vital Signs: Vital Signs Temp Pulse Resp BP Pulse Ox O2 Del Method 98 F 75 20 H 155/75 H 100 Room Air 10/07/22 03:55 10/07/22 03:55 10/07/22 03:55 10/07/22 03:55 10/07/22 04:00 10/07/22 04:00 Oxygen Delivery Method Room Air Weight: 123 lb 9.105 oz Body Mass Index (BMI) 19.3 Intake & Output: Intake and Output for Last 24 Hours 10/05/22 10/06/22 10/07/22 23:59 23:59 23:59 Intake Total 993.3333 / 993.3333 2074 / 2074 Output Total 2600 / 2600 5775 / 6875 2099 / 2100 Balance -1606.6667 / -1606.6667 -3700 / -4800 -2100 / -2100 Medical Nutrition Assessment Dietitian: Malnutrition Criteria Met Start: 10/04/22 10:51 Freq: Status: Active Protocol: Document 10/04/22 16:06 RMA (Rec: 10/04/22 16:06 RMA [id number]) Nutrition Malnutrition Evidence of Malnutrition Exists Yes Malnutrition (severe): Acute Illness/Injury Evidenced By Suboptimal Energy Intake ( Severe),Weight Loss (Severe) Clinical Problem Acute Disease or Injury Related Malnutrition Etiology Severe protein-calorie malnutrition in the context of acute illness related to painful swallow, altered GI function and inadequate oral intake Signs/Symptoms as evidenced by BMI 19.4, weight loss~5% in less than 1 month and oral intake meeting less then 50% estimated nutrition needs x past 1 week Status Active Problem Recommendation Dietitian Recommendations/Changes Recommend advance diet as tolerated to regular; consider OCCUPATIONAL MEDICINE SPECIALIST swallow eval if painful swallow continues. Will add 120 ml ensure clear 4 times per day w/ medpass. Will add ensure compact TID w/ meals for tolerance. Lab / Micro Data Result Diagrams: 10/04/22 06:15 10/07/22 06:30 Labs: Laboratory Results - last 24 hr 10/03/22 14:45: Diff Path Review Reviewed 10/04/22 06:15: Diff Path Review Reviewed 10/06/22 05:55: Phosphorus 3.7, Magnesium 2.1 10/07/22 06:30: Sodium 144, Potassium 3.0 L, Chloride 122 H, Carbon Dioxide 12.0 L, BUN 24 H, Creatinine 2.85 H, Estim Creat Clear Calc 16.39, Est GFR (MDRD) Af Amer 28 L, Est GFR (MDRD) Non-Af 23 L, BUN/Creatinine Ratio 8.4 L, Glucose 159 H, Calcium 8.8, Phosphorus 1.6 L, Albumin 2.6 L 10/07/22 06:30: Magnesium 1.9 Micro: Microbiology 10/05/22 12:40 Stool Enteric Bacteriology - Final 10/03/22 20:43 Stool C. difficile DNA Amplification - Final 10/03/22 15:07 Nasal Secretion SARS-CoV-2 & FLU Antigen (Rapid) - Final Radiography Diagnostic Testing: Radiology Impression Echocardiogram 10/05/22 09:25 Interpretation Summary Normal LV size. Left ventricular systolic function is hyperdynamic. Lipomatous hypertrophy of the atrial septum. Pulmonary artery systolic pressure is 30 mmHg. Contrast injection was performed. Ordering Physician: Moises Moore Referring Physician: Denny Dietrich Performed By: Amelia Deal, SRINIVASCS, RVT Abdomen/Pelvis CT 10/06/22 08:29 IMPRESSION: Dilated fluid-filled loops of small bowel concerning for a small bowel obstruction with a transition point within a right inguinal hernia. Fluid-filled loops of colon cannot exclude colitis. Atherosclerosis. Indeterminate 5.5 mm low-attenuation focus within the liver, cannot exclude a neoplastic process. Pancreatic atrophy likely related to known malignancy. Colonic diverticulosis. Left inguinal hernia containing a segment of colon without an associated obstruction. Electronically Signed: Maya Jason MD at 9:28 EDT , KUB X-Ray 10/06/22 12:05 IMPRESSION: Enteric tube terminating within the expected region of the gastric fundus. Electronically Signed: Maya Jason MD at 13:23 EDT , Physical Exam Narrative Has about 250 out in the canister from NG Const Constitutional Narrative: Appears more somnolent this morning Cardio regular rate GI soft to palpation GI Narrative: Patient is tender in the left abdomen and mid abdomen, no appreciable hernias on exam or they are able to be reduced. Assessment & Plan Assessment/Plan (1) Bilateral inguinal hernia: (2) SBO (small bowel obstruction): PLAN: Plan on Exam patient's inguinal hernia appear reducible. Patient is complaining of more abdominal pain in the left mid abdomen. We will get a KUB and possibly CT abdomen pelvis with p.o. contrast depending on KUB. Addendum: Patient's KUB shows a stool ball in the rectum as well as solid-appearing stool in the cecum with some gas distention of the ascending colon only occasional dilated small bowels. We will have the fecal management system removed as this likely obstructing the stool. Also plan for CT abdomen pelvis with p.o. contrast due to the increased abdominal pain and in the contrast will also be therapeutic. Discussed with Dr. Umberto Mclaughlin M.D. Pager: [phone] [facility] [address] [place] [address], [facility], [address] [place] [address] Office: [phone] Charges/Coding Visit Charges Inpatient E&M: 41513 Subs Hosp L3
[2022-10-07] MEDS: Pravastatin 40 MG Tablet PO (09:10)
[2022-10-07] MEDS: Cholecalciferol (VIT D3) 25 MCG TABLET (1,000 UNITS) 50 MCG PO (09:11)
[2022-10-07] MEDS: Ascorbic Acid 500 MG Tablet 250 MG PO (09:11)
[2022-10-07] MEDS: APIXABAN 2.5 MG TABLET (WCH) PO ×2 (09:12→22:02)
[2022-10-07] MEDS: BICALUTAMIDE 50 MG TABLET PO (09:12)
[2022-10-07] MEDS: NYSTATIN 500,000 UNIT/5 ML UDC 500000 UNIT PO ×2 (09:12→22:00)
[2022-10-07] MEDS: dilTIAZem CD 120 MG Capsule PO (09:42)
[2022-10-07] MEDS: Metoprolol(XL)Succ 100 MG Tablet 150 MG PO (09:45)
[2022-10-07] MEDS: Menthol/Lanolin/Calamine/Znox 113 GM Tube 1 APPLIC TOPICAL (09:50)
[2022-10-07] MEDS: Potassium Chloride IVPB 40 MEQ 100 MEQ IV BOLUS ×4 (10:10→15:35)
--- NOTE | 2022-10-07 10:17 | PN.RENAL_ITS ---
Subjective Subjective Following for IRASEMA NG placed. Surgery team following for bilateral hernias, small bowel obstruction. Patient's daughter and son at bedside. Objective Data Objective Data Vital Signs: Vital Signs Temp Pulse Resp BP Pulse Ox O2 Del Method 98 F 80 20 H 138/52 H 100 Room Air 10/07/22 03:55 10/07/22 09:45 10/07/22 03:55 10/07/22 09:45 10/07/22 04:00 10/07/22 04:00 Oxygen Delivery Method Room Air Weight: 56.05 kg Body Mass Index (BMI) 19.3 Intake & Output: Intake and Output for Last 24 Hours 10/05/22 10/06/22 10/07/22 23:59 23:59 23:59 Intake Total 993.3333 / 993.3333 2074 / 2074 Output Total 2600 / 2600 5775 / 6875 2099 / 2100 Balance -1606.6667 / -1606.6667 -3700 / -4800 -2100 / -2100 Medical Nutrition Assessment Dietitian: Malnutrition Criteria Met Start: 10/04/22 10:51 Freq: Status: Active Protocol: Document 10/04/22 16:06 RMA (Rec: 10/04/22 16:06 RMA [id number]) Nutrition Malnutrition Evidence of Malnutrition Exists Yes Malnutrition (severe): Acute Illness/Injury Evidenced By Suboptimal Energy Intake ( Severe),Weight Loss (Severe) Clinical Problem Acute Disease or Injury Related Malnutrition Etiology Severe protein-calorie malnutrition in the context of acute illness related to painful swallow, altered GI function and inadequate oral intake Signs/Symptoms as evidenced by BMI 19.4, weight loss~5% in less than 1 month and oral intake meeting less then 50% estimated nutrition needs x past 1 week Status Active Problem Recommendation Dietitian Recommendations/Changes Recommend advance diet as tolerated to regular; consider CIGARETTE MAKING MACHINE HOPPER FEEDER swallow eval if painful swallow continues. Will add 120 ml ensure clear 4 times per day w/ medpass. Will add ensure compact TID w/ meals for tolerance. Lab / Micro Data Result Diagrams: 10/04/22 06:15 10/07/22 06:30 Labs: Laboratory Results - last 24 hr 10/03/22 14:45: Diff Path Review Reviewed 10/04/22 06:15: Diff Path Review Reviewed 10/07/22 06:30: Sodium 144, Potassium 3.0 L, Chloride 122 H, Carbon Dioxide 12.0 L, BUN 24 H, Creatinine 2.85 H, Estim Creat Clear Calc 16.39, Est GFR (MDRD) Af Amer 28 L, Est GFR (MDRD) Non-Af 23 L, BUN/Creatinine Ratio 8.4 L, Glucose 159 H , Calcium 8.8, Phosphorus 1.6 L, Albumin 2.6 L 10/07/22 06:30: Magnesium 1.9 Micro: Microbiology 10/05/22 12:40 Stool Enteric Bacteriology - Final 10/03/22 20:43 Stool C. difficile DNA Amplification - Final 10/03/22 15:07 Nasal Secretion SARS-CoV-2 & FLU Antigen (Rapid) - Final Radiography Diagnostic Testing: Radiology Impression Echocardiogram 10/05/22 09:25 Interpretation Summary Normal LV size. Left ventricular systolic function is hyperdynamic. Lipomatous hypertrophy of the atrial septum. Pulmonary artery systolic pressure is 30 mmHg. Contrast injection was performed. Ordering Physician: Moises Moore Referring Physician: Denny Dietrich Performed By: Amelia Deal, SRINIVASCS, RVT X-Ray 10/06/22 12:05 IMPRESSION: Enteric tube terminating within the expected region of the gastric fundus. Electronically Signed: Maya Jsaon MD at 13:23 EDT , KUB X-Ray 10/07/22 08:56 IMPRESSION: Mild dilatation of bowel in the right upper quadrant with no acute finding. Electronically Signed: Sumeet Lewis, at 9:43 EDT , Physical Exam Narrative Alert and oriented, no apparent distress mucous membranes very dry S1, S2, rhythm irregular rate controlled Lung sounds clear anteriorly and posteriorly. No wheezes, rhonchi rales noted Abdomen soft to palpation No edema Assessment & Plan Assessment/Plan (1) Intractable diarrhea: (2) Hypokalemia: (3) IRASEMA (acute kidney injury): (4) Metabolic acidosis: (5) Atrial fibrillation: PLAN: Plan - 82-year-old male with past medical history significant for pancreatic cancer admitted for evaluation of diarrhea. Nephrology consulted for hypokalemia, IRASEMA, metabolic acidosis. -Initially nonoliguric, hypovolemic IRASEMA with normal baseline creatinine (creatinine ranging 0.8 to 1 mg/dL) serum creatinine 1.13 mg/dL on admission, creatinine 0.87 on 10/05, creatinine slightly elevated yesterday at 1.37 and today his creatinine is at 2.85 mg/dL. Likely IRASEMA secondary to significant volume depletion, A-fib leading to ATN. Patient had been nonoliguric. Urine output only around 100 mL today. However patient did have 1 liter out per NG and 1 L out from rectal tube this morning. Patient's output>>input. Place Cox per family request. CT abdomen pelvis without contrast few days ago did not show any hydronephrosis, normal renal size and position. At this time there is no acute indication for SUPERVISOR LIVESTOCK YARD. Continue off lisinopril. We will check uric acid, lactic acid. We will increase bicarb drip to 200 mL an hour for 4 hours today and repeat labs later today. -Diarrhea; stool studies so far negative; C. difficile and enteric pathogen pane l all normal. Patient has been receiving Bentyl, octreotide, Lomotil, Imodium. -Hypokalemia, metabolic acidosis likely secondary to significant GI losses. Patient has been getting potassium replacements and was started on bicarb drip yesterday. Today his potassium is at 3.0. Patient's bicarb level 20 on admission, today again bicarb is 12.0. Bicarb and potassium normal at baseline. Mag level 1.9 and was normal on admission. Phosphorus 1.6, K-Phos IV ordered and is being given now. -Abdominal pain, small bowel obstruction, bilateral hernias; surgery team following. NG placed. Rectal tube removed this morning as KUB showed stool ball in rectum as well as solid-appearing stool in cecum. Patient to have CT abdomen pelvis with oral contrast today. - history of HTN; bps acceptable on cardizem and toprol. -Had discussion today with patient's son and daughter who are at bedside regar ding IRASEMA, currently where renal function is at and possibility should renal function worsen that patient may need SUPERVISOR LIVESTOCK YARD. Questions were answered. Labs ordered for morning.
--- NOTE | 2022-10-07 13:05 | CT_ITS ---
STUDY: CT ABDOMEN AND PELVIS WITHOUT CONTRAST REASON FOR EXAM: Male, 82 years old. abd pain -- gastrografin now NG--delayed images RADIATION DOSAGE (If Supplied By Facility): CTDIvol = ( 6.94 ) mGy, DLP = ( 353.86 ) mGycm TECHNIQUE: Transaxial images were obtained from the dome of the diaphragm to the symphysis pubis with oral contrast, and without intravenous contrast. Sagittal and coronal images were reconstructed. Individualized dose optimization techniques were used for this CT. COMPARISON: Comparison is made with prior study dated October 06, 2022. FINDINGS: The visualized lung bases are unremarkable. Coronary artery calcification. Air is seen within the left intrahepatic biliary ducts in keeping with the cholecystectomy. A catheter is seen within the pancreatic duct entry into the second portion of the duodenum. The patient is status post Whipple procedure including cholecystectomy ectomy. Normal spleen. Normal pancreas. Normal bilateral adrenal glands. Normal right kidney. Normal left kidney. There is dilatation of the stomach from the oral contrast that was ingested. Fluid-filled small bowel loops although there is no evidence of a bowel obstruction at this time. Moderate amount of fecal material is seen throughout the colon. There is also evidence of fluid within the colon. The appendix is visualized and appears normal. There is diffuse atherosclerotic calcification of the abdominal aorta, without a demonstrated aneurysm. Normal inferior vena cava. Normal retroperitoneum. A Cox catheter is seen within the urinary bladder. 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 Once again, radiation seeds are seen within the prostate. The previously seen right inguinal hernia contains fluid. Small left inguinal hernia containing a portion of the nondilated sigmoid colon. There are diffuse degenerative changes of the visualized lumbar spine. Grade 1 anterior listhesis of L4 on L5. CT/Abdomen/Pel W ORAL Cont Only IMPRESSION: Emphysematous cystitis. Fecal material and fluid are seen throughout the colon. Fluid is seen within small bowel loops. Electronically Signed: Nick Garcia MD at 13:37 EDT ,
[2022-10-07 14:22] LABS: Absolute Lymphocyte Count 0.85 X10^3/uL (0.83-4.51); Absolute Neutrophil Count 11.8 X10^3/uL (2.0-7.7); Basophil# 0.01 X10^3/uL; Basophil% 0.1 % (0-1); Hemoglobin 11.7 g/dL (13.0-16.5); Lymphocyte # 0.85 X10^3/ul (0.83-4.51); Lymphocyte % 6.1 % (19-41); Mean Corp Hgb Conc 36.6 g/dL (32-36); Mean Corpuscular Hgb 33.4 pg (27.0-32.0); Mean Corpuscular Volume 91.4 fL (80-94); Mean Platelet Vol. 10.8 fl (6.2-12.0); Monocyte# 0.89 X10^3/uL; Monocyte% 6.4 % (0-10); NRBC Flagged by Analyzer 0.4 % (0-5); Neutrophil # 11.78 X10^3/uL (2.7-7.7); Neutrophil % 84.3 % (47-70); POSITIVE MORPHOLOGY YES; Platelet Count 158 K/mm3 (150-450); RBC Distribution Width CV 13.9 % (11.6-14.6)
[2022-10-07 14:47] LABS: Mucous, Urine 0 SEEN /hpf (<or=2+)
[2022-10-07 14:53] LABS: Differential Indicated SCAN CRITERIA MET
[2022-10-07 14:54] LABS: Differential Comment SCANNED
[2022-10-07 15:03] LABS: Potassium 3.7 mmol/L (3.5-5.1); Uric Acid 6.3 mg/dL (3.5-7.2)
[2022-10-07 15:08] LABS: Color, Urine Brown (Yellow); Glucose, Dipstick Normal (Normal); Ketone-Dipstick 5 mg/dl (Negative); Leukocyte Esterase-Dipstick 100 /ul (Negative); Nitrite-Dipstick Positive (Negative); Occult Blood-Urine 250 /ul (Negative); Protein-Dipstick 500 mg/dl (Negative); Specific Gravity, Urine 1.015 (1.002-1.030); Urine Clarity Turbid (Clear); Urine Urobilinogen Normal (Normal); Urine pH 6.5 (5.0 - 8.0)
[2022-10-07 15:09] LABS: Anion Gap 13 (5-15); BUN 25 mg/dL (7-18); BUN/Creat Ratio 9.2 RATIO (10-20); Calcium,Total 8.2 mg/dL (8.5-10.1); Chloride 117 mmol/L (98-107); Creatinine, Serum 2.71 mg/dL (0.70-1.30); EST Glomerular Filtration Rate 24 mL/min (>60); Est Glom Filt Rate - Afr Amer 29 mL/min (>60); Estimated Creatinine Clearance 17.24 ml/min; Glucose 101 mg/dL (74-106); Potassium 3.7 mmol/L (3.5-5.1); Sodium Level 144 mmol/L (136-145)
[2022-10-07 15:11] LABS: Urine Bilirubin Dipstick 1 mg/dL (Negative)
[2022-10-07 15:13] LABS: Lactic Acid 3.5 mmol/L (0.4-1.9)
[2022-10-07 15:20] LABS: Amorphous Sediment 1+ URATE; Bacteria 1+ /hpf (None Seen); Red Blood Cells-Urine > 100 SEEN /hpf (0-5); Squamous Epithelial Cells - UA 5-10 SEEN /hpf (0-5); White Blood Cells 10-25 SEEN /hpf (0-5)
--- NOTE | 2022-10-07 16:52 | NURSING ---
called oriana at rn field for dual picc line insertion
--- NOTE | 2022-10-07 17:17 | PCM.PN.HOSP ---
Reason for Visit Reason for Visit: Diagnoses Acidosis, unspecified (10/03/22) Hypokalemia (10/03/22) Unspecified atrial fibrillation (10/03/22) Bilateral inguinal hernia, without obstruction or gangrene, not specified as recurrent (10/03/22) Unspecified intestinal obstruction, unspecified as to partial versus complete obstruction (10/03/22) Acute kidney failure, unspecified (10/03/22) Unspecified abdominal pain (10/03/22) Vomiting, unspecified (10/03/22) Diarrhea, unspecified (10/03/22) Subjective Subjective Follow-up for chemotherapeutic adverse effect with generalized weakness, diarrhea, dehydration, ileus and electrolyte abnormality Objective Data Objective Data Vital Signs: Vital Signs Temp Pulse Resp BP Pulse Ox O2 Del Method 98 F 75 20 H 155/75 H 100 Room Air 10/07/22 03:55 10/07/22 03:55 10/07/22 03:55 10/07/22 03:55 10/07/22 04:00 10/07/22 04:00 Oxygen Delivery Method Room Air Weight: 123 lb 9.105 oz Body Mass Index (BMI) 19.3 Intake & Output: Intake and Output for Last 24 Hours 10/05/22 10/06/22 10/07/22 23:59 23:59 23:59 Intake Total 993.3333 / 993.3333 2074 / 2074 Output Total 2600 / 2600 5775 / 6875 2099 / 2099 Balance -1606.6667 / -1606.6667 -3700 / -4800 -2100 / -2100 Medical Nutrition Assessment Dietitian: Malnutrition Criteria Met Start: 10/04/22 10:51 Freq: Status: Active Protocol: Document 10/04/22 16:06 RMA (Rec: 10/04/22 16:06 RMA [id number]) Nutrition Malnutrition Evidence of Malnutrition Exists Yes Malnutrition (severe): Acute Illness/Injury Evidenced By Suboptimal Energy Intake ( Severe),Weight Loss (Severe) Clinical Problem Acute Disease or Injury Related Malnutrition Etiology Severe protein-calorie malnutrition in the context of acute illness related to painful swallow, altered GI function and inadequate oral intake Signs/Symptoms as evidenced by BMI 19.4, weight loss~5% in less than 1 month and oral intake meeting less then 50% estimated nutrition needs x past 1 week Status Active Problem Recommendation Dietitian Recommendations/Changes Recommend advance diet as tolerated to regular; consider CHICKEN HANDLER swallow eval if painful swallow continues. Will add 120 ml ensure clear 4 times per day w/ medpass. Will add ensure compact TID w/ meals for tolerance. Lab / Micro Data Result Diagrams: 10/07/22 14:10 10/07/22 14:10 Labs: Laboratory Results - last 24 hr 10/03/22 14:45: Diff Path Review Reviewed 10/04/22 06:15: Diff Path Review Reviewed 10/06/22 05:55: Phosphorus 3.7, Magnesium 2.1 10/07/22 06:30: Sodium 144, Potassium 3.0 L, Chloride 122 H, Carbon Dioxide 12.0 L, BUN 24 H, Creatinine 2.85 H, Estim Creat Clear Calc 16.39, Est GFR (MDRD) Af Amer 28 L, Est GFR (MDRD) Non-Af 23 L, BUN/Creatinine Ratio 8.4 L, Glucose 159 H, Calcium 8.8, Phosphorus 1.6 L, Albumin 2.6 L Micro: Microbiology 10/05/22 12:40 Stool Enteric Bacteriology - Final 10/03/22 20:43 Stool C. difficile DNA Amplification - Final 10/03/22 15:07 Nasal Secretion SARS-CoV-2 & FLU Antigen (Rapid) - Final Radiography Diagnostic Testing: Radiology Impression Echocardiogram 10/05/22 09:25 Interpretation Summary Normal LV size. Left ventricular systolic function is hyperdynamic. Lipomatous hypertrophy of the atrial septum. Pulmonary artery systolic pressure is 30 mmHg. Contrast injection was performed. Ordering Physician: Moises Moore Referring Physician: Denny Dietrich Performed By: Amelia Deal, VINICIO, RVT Abdomen/Pelvis CT 10/06/22 08:29 IMPRESSION: Dilated fluid-filled loops of small bowel concerning for a small bowel obstruction with a transition point within a right inguinal hernia. Fluid-filled loops of colon cannot exclude colitis. Atherosclerosis. Indeterminate 5.5 mm low-attenuation focus within the liver, cannot exclude a neoplastic process. Pancreatic atrophy likely related to known malignancy. Colonic diverticulosis. Left inguinal hernia containing a segment of colon without an associated obstruction. Electronically Signed: Maya Jason MD at 9:28 EDT Reading Location ID and State: [facility] / [place] Tel , Service support , KUB X-Ray 10/06/22 12:05 IMPRESSION: Enteric tube terminating within the expected region of the gastric fundus. Electronically Signed: Maya Jason MD at 13:23 EDT , Physical Exam Narrative Seen and examined. Patient is very weak, low pitched voice. Passed flatus yesterday. Complain of abdominal pain over left lower quadrant. Urine output only 100 mL. Negative fluid balance, 2 L as per CORBY charting. No fever. Diarrhea has slowed down possible collecting bowel lumen/third volume spacing Physical exam General: Alert, Oriented x3, Cooperative HEENT: Atraumatic, PERRLA, EOMI, Normocephalic Oral: Oral mucosa dry. Small reddish patch/mild sore and lateral pharyngeal area Neck: Supple, No JVD, Negative Carotid Bruits Lungs: Air entry diminished in bilateral lung bases. No crepitation/rhonchi Cardiovascular: Regular rate, Regular Rhythm, Normal S1, Normal S2, No murmurs Abdomen: Bowel sound absent. Abdomen distended. Minimal to no tenderness. NG suction about 1 L. : No renal angle tenderness. No suprapubic tenderness. Extremities: No edema, Capillary Refill Less than 3 Seconds Skin: No rashes, No breakdown Musculoskeletal: No Tenderness to Palpation of Joints or Extremities. ROM restricted, muscle strength 4+/5 at major joints. Neurological: Cranial nerves II-XII grossly intact, DTR 2+/4. No acute neurological deficit Psych/Mental Status: Flat affect. Assessment & Plan Assessment/Plan (1) Intractable diarrhea: PLAN: Plan 1. Generalized debility secondary to chronic diarrhea-on IV fluid PT and OT. Incentive spirometry. Rest as mentioned below #2 Small bowel ileus, bilateral inguinal hernia with concern for obstruction due to acute/subacute diarrhea- secondary to chemotherapeutic adverse effect/mucositis: The patient had diarrhea for 3 weeks. Empiric bacteriology panel Negative. The patient's C. difficile toxin was negative. Discussed with Dr. Patel in the morning. Patient on octreotide, scheduled Lomotil and Imodium. CT abdomen without contrast was done. CT images individually reviewed and agree with dilated stomach and fluid-filled loops of small bowel within the right inguinal hernia and colon in left renal hernia. I do not see obvious hernia swelling palpable/impulse on coughing. CT abdomen reported right inguinal hernia with a transition point. Discussed with the surgeon and CT images reviewed. We agreed there is no palpable hernial swelling Bramley due to dilated bowel loops or small hernial swelling/both. NG tube insertion ordered. I do not think patient needs any surgical intervention. 10/07: No fever. Diarrhea has slowed down possible collecting bowel lumen/third volume spacing. IV fluid Ringer lactate total 3 L given. First KUB and then CT abdomen with oral contrast done. Official report pending. CT was reviewed with the surgeon. It more looks like ileus with oral contrast mainly in the stomach. Did not go to middle or ileum or colon. Possible emphysematous cystitis. Repeat UA and urine culture ordered. Started empirically on IV piperacillin tazobactam #3 pancreatic cancer Whipple surgery on adjuvant chemotherapy. Patient had surgical resection and after that adjuvant chemotherapy with FOLFOX 1 cycle. After that patient was started on Irinotecan, which is DNA topoisomerase inhibitors. Complicates care, medical course, recovery, and prognosis. On pancrelipase supplement #4 IRASEMA , hypernatremia, hypokalemia, hyperchloremic normal anion gap metabolic acidosis and IRASEMA, prerenal etiology due to intractable diarrhea: Sodium high, potassium low. Baseline creatinine around 0.8-0.9 increased to 1.37. 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 Serum magnesium and phosphorus are in normal range. Nephrology consult requested and discussed. 16: Oliguria with worsening of IRASEMA with suspicion of prerenal TO ATN: urine output only 100 mL. Negative fluid balance, 2 L as per intake and output charting. IV fluid resuscitation. Discontinue lisinopril. Hypokalemic metabolic normal anion gap acidosis persists. Hypophosphatemia. IV potassium phosphate Ordered. Serum magnesium normal. Patient also has mild blood/hematuria on Cox catheterization. Patient also had one-time rubber catheterization. #5 past history of prostate cancer-complicates care, medical course, recovery, and prognosis #. Severe dehydration-patient on IV fluid #7 new onset atrial fib with rapid ventricular response-body service team member shows sinus rhythm heart rate in 70s. Patient had IV digoxin 500 mcg and then metoprolol succinate increased to 150 mg daily. Cardizem CD 120 mg daily. On Eliquis 2.5 mg twice daily. 2D echo ordered patient was evaluated by patron attendant and signed off. Living will/advanced directive/end of life care: Patient does have living will or advanced directive. 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 I talked to patient's son Tristan yesterday and daughter in the room today. After discussion of benefits/risks procedures involved with full code, DNR CC arrest and DNR CC, the patient opted for DNRCC arrest with no intubation Patient doesn't want artificial life support including intubation, ventilator and/chest compression, central venous catheter, vasopressor and DC shock if needed Total time spent in [id number] encounter in discussion of advanced directive 17 minutes. Total time of the visit including total time spent in counseling or coordination of care, (more than 50% of the total time, spent in obtaining medical information from nurses and other ancillary care providers,explaining to the patient about labs, imaging, diagnosis and management of active complex medical conditions), discussion with oncologist and manager cath lab, clinical update given to patient's son at bedside, review of labs and imaging is 45 minutes. Charges/Coding Visit Charges Inpatient E&M: 40215 Subs Hosp L3 Procedures Hospitalists Procedures: 71094 Advncd Care Plan 30 Min
[2022-10-07 18:16] LABS: Reflex Lactate? Y
[2022-10-07] MEDS: Lactated Ringers 1,000 ML 500 ML IV (19:00)
[2022-10-07 19:46] LABS: Lactic Acid 3.5 mmol/L (0.4-1.9)
[2022-10-07 20:10] LABS: Potassium 3.5 mmol/L (3.5-5.1)
[2022-10-07] MEDS: Gabapentin 100 MG Capsule PO (22:02)
[2022-10-07] MEDS: Diphenoxylate/Atrop 1 Tablet 2 TABLET PO (22:03)
[2022-10-07] MEDS: MELATONIN 10 MG TABLET 5 MG PO (22:03)
[2022-10-08] MEDS: Loperamide 2 MG Capsule 4 MG PO
[2022-10-08] MEDS: Dicyclomine 10 MG Capsule 20 MG PO
[2022-10-08 00:18] VITALS: BP 112/60; PULSE 118; RESP 26; TEMP 36.6; O2SAT 95
[2022-10-08 00:52] VITALS: O2SAT 95
[2022-10-08 03:56] VITALS: BP 106/50; PULSE 99; RESP 44; TEMP 36.5; O2SAT 93
[2022-10-08] MEDS: Menthol/Lanolin/Calamine/Znox 113 GM Tube 1 APPLIC TOPICAL (04:02)
--- NOTE | 2022-10-08 04:24 | PCM.HOSP.N ---
Hospitalist Note Patient with increased oxygen requirements, will obtain CXR, ABG, BIPAP if appropriate pending ABG.
--- NOTE | 2022-10-08 04:30 | RAD_ITS ---
EXAM: XR CHEST, 1 VIEW CLINICAL INDICATION: Dyspnea Dyspnea TECHNIQUE: Frontal view of the chest. COMPARISON: No relevant prior studies available. FINDINGS: LUNGS AND PLEURAL SPACES: Unremarkable. No consolidation or edema. No pneumothorax. No effusion. HEART: Unremarkable. Cardiac silhouette not enlarged. MEDIASTINUM: Central airways and mediastinal contour are unremarkable. BONES/JOINTS: There are multilevel degenerative changes in the visualized spine. SOFT TISSUES: Unremarkable. TUBES, LINES AND DEVICES: There is a right internal jugular Port-A-Cath with its tip overlying the superior vena cava. RAD/Chest 1 View (Portable) IMPRESSION: 1. Port-A-Cath in place. 2. No evidence for acute cardiopulmonary pathology. Electronically Signed: Buddy Boogie MD at 5:02 EDT Reading Location ID and State: [facility] / [place] , Service support ,
--- NOTE | 2022-10-08 04:35 | RAD_ITS ---
EXAM: XR ABDOMEN, 1 VIEW CLINICAL INDICATION: ileus ileus TECHNIQUE: Frontal supine view of the abdomen/pelvis. COMPARISON: Chest x-ray done today. CT scan abdomen and pelvis 10/07/2022. FINDINGS: LOWER THORAX: None included in this study. GASTROINTESTINAL TRACT: Unremarkable. Non-obstructive. No bowel or stomach distention. ORGANS: No organomegaly. No abnormal calcifications. BONES/JOINTS: There are multilevel degenerative changes in the visualized spine. SOFT TISSUES: There are brachytherapy seeds in the prostate gland. TUBES, LINES AND DEVICES: There is a horizontally oriented stent overlying the right para midline abdomen, corresponding with a pancreatic duct stent seen on CT scan. There is a Cox catheter. RAD/Abdomen Single View (Portable) IMPRESSION: 1. Nonspecific bowel gas pattern. 2. Pancreatic duct stent. Cox catheter. Brachytherapy seeds in the prostate. Electronically Signed: Buddy Boogie MD at 5:23 EDT Reading Location ID and State: [facility] / [place] , Service support ,
[2022-10-08 04:53] VITALS: O2SAT 97
[2022-10-08 05:01] LABS: Allen Test Positive; Base Excess -15 mmol/L (-2 to +2); Bicarbonate 10.3 mmol/L (22-26); Blood Gas Specimen Type ART; O2 Delivery Device Cannula; PO2 87 mmHG (75-100); SITE R Radial; SO2 97 % (95-99); Total Carbon Dioxide 11 mmol/L; pCO2 16.6 mmHg (35-45)
[2022-10-08] MEDS: Acetaminophen 325 MG Tablet 650 MG PO (05:10)
[2022-10-08] MEDS: Sodium Bicarbonate 8.4% 50 ML Syringe 50 MEQ IV ×2 (05:36)
[2022-10-08 05:53] LABS: Absolute Lymphocyte Count 1.09 X10^3/uL (0.83-4.51); Absolute Neutrophil Count 15.5 X10^3/uL (2.0-7.7); Basophil# 0.03 X10^3/uL; Basophil% 0.2 % (0-1); Hematocrit 25.4 % (40-54); Hemoglobin 8.8 g/dL (13.0-16.5); Lymphocyte # 1.09 X10^3/ul (0.83-4.51); Lymphocyte % 6.3 % (19-41); Mean Corp Hgb Conc 34.6 g/dL (32-36); Mean Corpuscular Hgb 33.2 pg (27.0-32.0); Mean Corpuscular Volume 95.8 fL (80-94); Mean Platelet Vol. 11.1 fl (6.2-12.0); Monocyte# 0.29 X10^3/uL; Monocyte% 1.7 % (0-10); NRBC Flagged by Analyzer 0.9 % (0-5); Neutrophil # 15.48 X10^3/uL (2.7-7.7); Neutrophil % 88.8 % (47-70); POSITIVE MORPHOLOGY YES; Platelet Count 140 K/mm3 (150-450); RBC Distribution Width CV 14.5 % (11.6-14.6); RBC Distribution Width SD 49.9 fl (35.1-43.9); Red Blood Count 2.65 M/mm3 (4.6-6.2); White Blood Count 17.4 K/mm3 (4.4-11.0)
[2022-10-08 06:09] LABS: Differential Indicated SCAN CRITERIA MET
--- NOTE | 2022-10-08 06:17 | NURSING ---
Pt daughter Phuong updated on pt change in condition and states that she will come in now. Walker RIVERA
[2022-10-08 06:31] LABS: Macrocytosis RARE; Platelet Estimate SLT DEC (ADEQ)
[2022-10-08 06:40] LABS: Toxic Granulation 2+
[2022-10-08 06:58] LABS: Anion Gap 15 (5-15); BUN 38 mg/dL (7-18); BUN/Creat Ratio 10.4 RATIO (10-20); Calcium,Total 7.3 mg/dL (8.5-10.1); Chloride 112 mmol/L (98-107); Creatinine, Serum 3.64 mg/dL (0.70-1.30); EST Glomerular Filtration Rate 17 mL/min (>60); Est Glom Filt Rate - Afr Amer 21 mL/min (>60); Estimated Creatinine Clearance 12.83 ml/min; Glucose 107 mg/dL (74-106); Lactic Acid 10.6 mmol/L (0.4-1.9); Magnesium 1.7 mg/dL (1.6-2.6); Phosphorus 5.1 mg/dL (2.5-4.9); Potassium 5.2 mmol/L (3.5-5.1); Sodium Level 144 mmol/L (136-145)
--- NOTE | 2022-10-08 07:06 | PCM.DEATH ---
Preliminary Cause of Preliminary Cause of Preliminary Cause of : Emphysematous cystitis fromIrinotecan Date of Admission: 10/03/22 Date of : 10/08/22 Principle Diagnosis Emphysematous cystitis fromIrinotecan Intractable diarrhea, leading to IRASEMA/ATN from chemotherapeutic agent, Irinotecan Small bowel ileus, dilated stomach from chemotherapeutic adverse effect. Hypokalemic metabolic acidosis, hypernatremia from chemotherapeutic adverse effect. New onset A-fib probably from chemotherapeutic adverse effect. pT1c N1 (2/33 LNs positive) M0 stage IIB pancreas cancer. Status post Whipple surgery and adjuvant chemotherapy. Problem List: Active and Suspected Problems (Updated 10/06/22 @ 17:[address] Kashmir Patel, DO) Abdominal pain with vomiting (Acute) SBO (small bowel obstruction) (Acute) Bilateral inguinal hernia (Acute) Metabolic acidosis (Acute) IRASEMA (acute kidney injury) (Acute) Hypokalemia (Acute) Atrial fibrillation (Acute) Intractable diarrhea (Acute) Hospital Course 82-year-old gentleman with history of pancreatic cancer diagnosed early 2022 had Whipple procedure in [facility] started on chemotherapy about a month ago scheduled every 2 weeks was admitted for severe diarrhea and nausea. 1.? Generalized debility secondary to chronic diarrhea due to chemotherapeutic agent-on IV fluid PT and OT.? Incentive spirometry.? Rest as mentioned below #2? Small bowel ileus, bilateral inguinal hernia with concern for obstruction due to acute/subacute diarrhea- secondary to chemotherapeutic adverse effect/mucositis, due to Irinotecan: The patient had diarrhea for 2-3 weeks.? Empiric bacteriology panel Negative.? The patient's C. difficile toxin was negative.? Discussed with Dr. Patel in the morning.? Patient on octreotide, scheduled Lomotil and Imodium.? CT abdomen without contrast was done.? CT images individually reviewed and agree with dilated stomach and fluid-filled loops of small bowel within the right inguinal hernia and colon in left renal hernia.? I do not see obvious hernia swelling palpable/impulse on coughing.? CT abdomen reported right inguinal hernia with a transition point.? Discussed with the surgeon and CT images reviewed.? We agreed there is no palpable hernial swelling Bramley due to dilated bowel loops or small hernial swelling/both.? NG tube insertion ordered.? I do not think patient needs any surgical intervention. 10/07: ? No fever.? Diarrhea has slowed down possible collecting bowel lumen/third volume spacing.? IV fluid Ringer lactate total 3 L given.? First KUB and then CT abdomen with oral contrast done.? Official report pending.? CT was reviewed with the surgeon.? It more looks like ileus with oral contrast mainly in the stomach.? Did not go to middle or ileum or colon.? Possible emphysematous cystitis.? Repeat UA and urine culture ordered.? Started empirically on IV piperacillin tazobactam #3 pancreatic cancer Whipple surgery on adjuvant chemotherapy.? Patient had surgical resection and after that adjuvant chemotherapy with FOLFOX 1 cycle.? After that patient was started on Irinotecan, which is DNA topoisomerase inhibitors.? Complicates care, medical course, recovery, and prognosis.? On pancrelipase supplement #4? IRASEMA, prerenal progressed to ATN, hypernatremia, hypokalemia, hyperchloremic normal anion gap metabolic acidosis due to intractable prolonged diarrhea with complicated emphysematous cystitis most likely due to chemotherapeutic toxic effect: Sodium high, potassium low.? Baseline creatinine around 0.8-0.9 increased to 1.37.? Director Of Land [employer] started? on bicarb drip with potassium supplement.? Serum magnesium and phosphorus are in normal range.? Nephrology consult requested and discussed. 10/07: Oliguria with worsening of IRASEMA with progression to ATN: urine output? only 100 mL.? Negative fluid balance, 2 L as per intake and output charting.? IV fluid resuscitation.? Discontinue lisinopril.? Hypokalemic metabolic normal anion gap acidosis persists.? Hypophosphatemia. IV potassium phosphate Ordered.? Serum magnesium normal. Patient also has mild blood/hematuria on Cox catheterization.? Patient also had one-time rubber catheterization. On 10/07/2022, about 4:30 PM family meeting was done with patient and his 2 sons, daughter and son-in-law.? Director Of Land Acquisition Dr. Lu and I discussed about overall clinical course of complications of chemotherapy, CA pancreatic itself, ileus CT abdomen, IRASEMA which is probably progressing to ATN.? Patient did not had urine output.? He already had more than 3 L of IV fluid bolus.? The option of palliative care and hospice was given but patient's family wanted to continue aggressive treatment short of DNR CC arrest.? IV fluid, antibiotics, NG tube suction and monitoring of labs discussed as per the family decision. CT images was individually reviewed and in the surgeon discussed with the radiologist. I agree with the diagnosis of emphysematous cystitis. Earlier UA with urine culture and empiric IV antibiotic Zosyn was started for empirical CT diagnosis of emphysematous cystitis.? Patient is afebrile. Blood culture was ordered. Patient had peripheral lines and Mediport. PICC line was ordered but could not be inserted, patient before that. #5 past history of prostate cancer-complicates care, medical course, recovery, and prognosis #.? Severe dehydration-patient on IV fluid #7 new onset atrial fib with rapid ventricular response-radiation monitor shows sinus rhythm heart rate in 70s.? Patient had IV digoxin 500 mcg and then metoprolol succinate increased to 150 mg daily.? Cardizem CD 120 mg daily.? On Eliquis 2.5 mg twice daily patient was evaluated by rubber vulcanizing machine operator and signed off. 2D echo reported normal. Systolic function hyperdynamic, no regional wall motion abnormality. Normal left atrium and right atrium. RVSP 30 mmHg. Time of 6:20 AM on 10/08/2022 Visit Charges Inpatient E&M: 25044 Disch Hosp >30min
[2022-10-08 08:15] LABS: M R Staph aureus DNA By PCR Negative (Negative); Probe Check PASS; Specimen Processing Control PASS
[2022-10-08 09:56] LABS: Reflex Lactate? Y
== END 2022-10-08 06:20 | DRG 393 ==
LOC: ED 15:57 → MS3 16:49 → PCU 10-05 01:24
PROVIDERS: Family Medicine; Hospitalist; Internal Medicine; Nurse Practitioner Adult Health; Physician Assistant; Surgery; Admitting Provider Internal Medicine; Emergency Provider Emergency Medicine; PCP Family Medicine; Visit Provider Internal Medicine
DX: K52.1 Toxic gastroenteritis and colitis (principal); E43 Unspecified severe protein-calorie malnutrition; N17.0 Acute kidney failure with tubular necrosis; E87.0 Hyperosmolality and hypernatremia; E87.29 Other acidosis; K40.00 Bilateral inguinal hernia, with obstruction, without gangrene, not specified as recurrent; C25.9 Malignant neoplasm of pancreas, unspecified; N17.9 Acute kidney failure, unspecified; Z68.1 Body mass index [BMI] 19.9 or less, adult; E83.39 Other disorders of phosphorus metabolism; C61 Malignant neoplasm of prostate; I48.91 Unspecified atrial fibrillation; J44.9 Chronic obstructive pulmonary disease, unspecified; K12.32 Oral mucositis (ulcerative) due to other drugs; D72.819 Decreased white blood cell count, unspecified; E86.0 Dehydration; I10 Essential (primary) hypertension; E87.6 Hypokalemia; K21.9 Gastro-esophageal reflux disease without esophagitis; E78.2 Mixed hyperlipidemia; F17.210 Nicotine dependence, cigarettes, uncomplicated; T45.1X5A Adverse effect of antineoplastic and immunosuppressive drugs, initial encounter; N30.81 Other cystitis with hematuria; Z66 Do not resuscitate; Z95.828 Presence of other vascular implants and grafts; Z20.822 Contact with and (suspected) exposure to COVID-19; Z79.899 Other long term (current) drug therapy; Z85.46 Personal history of malignant neoplasm of prostate
CPT/HCPCS: 36415; 36591; 36600; 70450; 71045; 73502; 74018; 74176; 80048; 80053; 80069; 81001; 82803; 83605; 83735; 84100; 84132; 84443; 84550; 85025; 87040; 87077; 87086; 87088; 87186; 87428; 87493; 87506; 87641; 93005; 93306; 94762; 97110; 97161; 97166; 97530; 97802; 99282; J7030; J7040; J7120; Q9957; A4216; C8929; J2354; J2405